=== PATIENT | male | born 2000 | race Two or more races ===

== ENCOUNTER 2024-01-31 07:32 | Emergency (ER) | payer OTHER, SELFPAY ==
[2024-01-31 07:40] VITALS: BP 143/63; PULSE 90; RESP 16; TEMP 36.4; O2SAT 98; BMI 35.4
[2024-01-31] MEDS: Ondansetron ODT 4 MG TAB.RAPDIS TRANSLINGU (07:43)
[2024-01-31 08:02] LABS: MANUAL DIFF FLAG NO
[2024-01-31 08:04] LABS: Basophils Percent Auto 0.3 % (0-2); Eosinophils Percent Auto 0.7 % (0-4); Hematocrit 46.4 % (42.0-52.0); Hemoglobin 16.3 g/dl (14.0-18.0); Imm Gran Abs Auto 0.04 X10*3/uL (0.00-0.03); Imm Gran Pct Auto 0.7 % (0.0-0.4); Lymphocytes Absolute Auto 1.7 X10*3/uL (1.2-4.9); Lymphocytes Percent Auto 28.6 % (20-40); Mean Corpuscular HGB Conc 35.1 g/dl (31.0-36.0); Mean Corpuscular Hemoglobin 30.5 pg (27.0-33.0); Mean Corpuscular Volume 86.7 fL (80.0-98.0); Mean Platelet Volume 9.5 fL (9.4-12.4); Monocytes Percent Auto 16.9 % (2-11); Neutrophils Absolute Auto 3.1 x10*3/uL (2.0-8.3); Neutrophils Percent Auto 52.8 % (45-73); Platelet Count 304 X10*3/uL (160-400); Red Blood Count 5.35 X10*6/uL (4.60-5.80); White Blood Count 5.8 X10*3/uL (4.8-10.8)
[2024-01-31 08:17] LABS: Anion Gap 16 (12-20); Blood Urea Nitrogen 15 mg/dL (9-16); Calcium 9.5 mg/dL (8.4-10.2); Carbon Dioxide 23 mmol/L (22-29); Chloride 103 mmol/L (96-108); Creatinine Clr Calc Pharmacy 131.6; Estimated Glomerular Filt Rate > 60; Glucose Random 100 mg/dL (60-115); Potassium 3.7 mmol/L (3.3-5.1); Sodium 138 mmol/L (135-145)
[2024-01-31 08:46] LABS: Influenza A PCR NEGATIVE (Negative); Influenza B PCR NEGATIVE (Negative); Resp Syncy Virus RNA Qual PCR NEGATIVE (Negative); SARS COV2 PCR INHOUSE NEGATIVE (Negative)
== END 2024-01-31 11:36 | disposition left against medical advice (07) ==
PROVIDERS: Emergency Provider Emergency Medicine
DX: R11.2 Nausea with vomiting, unspecified (principal); R19.7 Diarrhea, unspecified; Z03.818 Encounter for observation for suspected exposure to other biological agents ruled out
CPT/HCPCS: 0241U; 80048; 85025; 99281; 99283

== ENCOUNTER 2024-01-31 18:28 | Emergency (ER) | payer OTHER, SELFPAY | END 2024-01-31 19:52 | disposition left against medical advice (07) | PROVIDERS: Emergency Provider Emergency Medicine | DX: Z53.21 Procedure and treatment not carried out due to patient leaving prior to being seen by health care provider (principal); R10.9 Unspecified abdominal pain; R11.10 Vomiting, unspecified ==

== ENCOUNTER 2024-08-08 08:59 | Emergency (ER) | payer MEDICAID, SELFPAY ==
--- NOTE | ~2024-08-08 | XR_ITS ---
EXAMINATION: XR CHEST CLINICAL INFORMATION: chest pain COMPARISON: None available. TECHNIQUE: 2 views of the chest were obtained. FINDINGS: Overlying EKG wires. The lungs are well-expanded. No focal consolidation. No pleural effusions or pneumothorax. The cardiac mediastinal silhouette is within normal limits. No acute osseous abnormality. XR/XR chest 2V IMPRESSION: No acute pulmonary disease. Electronically signed by: Ori Silva MD 08/08/2024 09:35 AM [facility]
--- NOTE | 2024-08-08 09:01 | ECG_ITS ---
Test Reason : CHEST TIGHTNESS Blood Pressure : / mmHG Vent. Rate : 068 BPM Atrial Rate : 068 BPM P-R Int : 172 ms QRS Dur : 114 ms QT Int : 372 ms P-R-T Axes : 024 059 042 degrees QTc Int : 395 ms Normal sinus rhythm Normal ECG No previous ECGs available Referred By: Generic ED Physician Electronically Signed By:MARY HURTADO MD
[2024-08-08 09:03] VITALS: BP 145/67; PULSE 68; RESP 18; TEMP 37.2; O2SAT 100; BMI 32.1
--- NOTE | 2024-08-08 09:26 | ED.CHESTPAIN ---
HPI - Chest Pain General Chief Complaint: Chest Pain Stated Complaint: Chest tightness 4 days Time Seen by Provider: 08/08/24 09:13 Source: patient and family Mode of arrival: ambulatory Limitations: no limitations History of Present Illness ED Provider: Laurita Siegel PA-C HPI narrative: 24 y/o male presents to the ER for evaluation of 3-4 days of intermittent chest pain and pressure. He reports he gets random episodes of sharp, squeezing left-sided chest pain that does not radiate. He has had 2 episodes a day for the last 3 or 4 days. He states 1 episode yesterday lasted almost 2 hours and then slowly resolved. He denies any associated shortness of breath, nausea, diaphoresis. No cough, URI symptoms, fever, chills, N/V/D or abdominal pain. Mother endorses he has had a significant amount of unintentional weight loss over the last 3 months. He was 240-250lbs and is now 207lbs. He has been eating normally. No night sweats, body aches, rashes, headaches or changes in bowel movements. MD complaint: chest pain Onset (ago): day(s) (4) Timing of current episode: episodic Prior episodes: No Onset: during rest Pain location: left chest Pain radiation: none Severity: severe Quality: aching and sharp Relieving factors: nothing Exacerbating factors: nothing Associated symptoms: other (weight loss) Treatment prior to arrival: none Risk Factors Coronary artery disease risk factors: smoking history Thoracic aortic dissection risk factors: none Related Data Allergies Allergy/AdvReac Type Severity Reaction Status Date / Time No Known Allergies Allergy Verified 08/08/24 09:09 Review of Systems Review of Systems: Yes all other systems are reviewed and are negative [facility] Social History Social History Use of substances other than those prescribed or required for medical reasons: Yes Substance Use Type: Marijuana Substance Use Frequency: Chronic Longstanding Advance Directives: No Advance Directives Information Provided: Yes Do you have a plan to hurt others: No Plan Physical Exam Vital Signs: Vital Signs: Last Vital Signs Temp 98.5 F 08/08/24 11:17 Pulse 79 08/08/24 11:17 Resp 16 08/08/24 11:17 BP 130/71 08/08/24 11:17 Pulse Ox 99 08/08/24 11:17 O2 Del Method Room Air 08/08/24 11:17 BMI result Body Mass Index 32.1 Appearance: Alert. Oriented X3. No acute distress. Head: normocephalic, atraumatic. Eyes: Pupils equal, round and reactive to light. ENT: Pharynx normal. No tonsillar swelling or exudate. Neck: Normal inspection. Neck supple. CVS: Normal heart rate and rhythm. Pulses normal. Nontender chest wall Respiratory: No respiratory distress. Breath sounds normal. Abdomen: Soft and nontender. +BS x4 Skin: Skin warm and dry. Normal skin color. Normal skin turgor. No rashes. Extremities: No lower extremity edema. No joint swelling. Negative Kurtis's sign Neuro/psych: Oriented X 3. No motor deficit. No sensory deficit. CN II-XII intact. Normal speech and cognition. Medical Decision Making Medical Decision Making [facility] Narrative: 24 yo male presenting with intermittent left sided chest pains x4 days along with unintentional weight loss over 3 months. he smokes marijuana but no tobacco. no illicit drug use. no health issues that he knows of. VSS on arrival. physical exam is unremarkable. EKG is nonischemic. doubt cardiac etiology labs are unreamrkable. troponin is negative. patient remains pain free. at this time patient is stable for d/c home with outpatient follow up. Differential Diagnosis Differential Diagnoses: The differential diagnosis associated with the presentation includes costochondritis, ACS, PE, anxiety, underlying malignancy Lab Data [facility] Lab Attestation statement: I reviewed the patient's lab results. mild neutropenia 08/08/24 09:44 08/08/24 09:44 Labs: Lab Results 08/08/24 08/08/24 08/08/24 Range/Units 09:19 09:44 11:19 WBC 4.2 L (4.8-10.8) X10*3/uL RBC 4.86 (4.60-5.80) X10*6/uL Hgb 14.8 (14.0-18.0) g/dl Hct 43.5 (42.0-52.0) % MCV 89.5 (80.0-98.0) fL MCH 30.5 (27.0-33.0) pg MCHC 34.0 (31.0-36.0) g/dl RDW 13.0 (11.0-16.0) % Plt Count 286 (160-400) X10*3/uL MPV 9.6 (9.4-12.4) fL Immature Gran % (Auto) 0.2 (0.0-0.4) % Neut % (Auto) 47.0 (45-73) % Lymph % (Auto) 38.3 (20-40) % [place] % (Auto) 9.6 (2-11) % Eos % (Auto) 3.9 (0-4) % Baso % (Auto) 1.0 (0-2) % Lymph # (Auto) 1.6 (1.2-4.9) X10*3/uL [place] # (Auto) 0.4 (0.1-1.2) X10*3/uL Eos # (Auto) 0.2 (0.0-0.4) X10*3/uL Baso # (Auto) 0.0 (0.0-0.2) X10*3/uL Abs Immat Gran (auto) 0.01 (0.00-0.03) X10*3/uL Absolute Neuts (auto) 2.0 (2.0-8.3) x10*3/uL Absolute Nucleated RBC 0.000 (0.0-0.012) X10*3/uL Nucleated RBC % (auto) 0.0 (0.0-0.2) /100WBC Sodium 138 (135-145) mmol/L Potassium 4.5 D (3.3-5.1) mmol/L Chloride 104 (96-108) mmol/L Carbon Dioxide 29 (22-29) mmol/L Anion Gap 10 L (12-20) BUN 9 (9-16) mg/dL Creatinine 0.83 (0.5-1.4) mg/dL Estim Creat Clear Calc 161.5 Estimated GFR > 60 Random Glucose 93 (60-115) mg/dL Calcium 9.6 (8.4-10.2) mg/dL Magnesium 2.0 (1.6-2.6) mg/dL Total Bilirubin 0.4 (0.0-1.0) mg/dL Direct Bilirubin 0.2 (0.0-0.5) mg/dL AST 24 (5-37) U/L ALT 12 (0-40) U/L Alkaline Phosphatase 63 (39-117) U/L Troponin I High Sens < 2.7 (<3.5-35.0) ng/L Total Protein 7.0 (6.5-8.0) g/dL Albumin 4.1 (3.5-5.0) g/dL Urine Color Yellow Urine Appearance Clear Urine pH 8.5 (5.0-9.0) Ur Specific [place] 1.010 (1.005-1.025) Urine Protein Negative (Neg-Trace) mg/dL Urine Glucose (UA) Negative (Negative) mg/dL Urine Ketones Negative (Negative) mg/dL Urine Blood Negative (Negative) Urine Nitrite Negative (Negative) Ur Leukocyte Esterase Negative (Negative) Influenza Type A (PCR) NEGATIVE (Negative) Influenza Type B (PCR) NEGATIVE (Negative) RSV RNA Qual (PCR) NEGATIVE (Negative) SARS-CoV-2 RNA (RT-PCR) NEGATIVE (Negative) Independent Interpretation I performed an independent interpretation of an: EKG and Plain X-Ray Interpretation: ekg w/ normal sinus rhythm, HR 68 bpm, normal CO interval, normal QTc CXR clear without focal infiltrate or mass Independent Historian Clinical information obtained from an independent historian. History obtained from or confirmed by: Parent External Record Review External record reviewed: Outpatient record and Prior outpatient labs Prescription Management I considered prescription management with: Pain Medication Social Determinants Patient?s care significantly limited by Social Determinants of Health including: Other Social Determinant of Health (no PCP) Critical Care Time Critical Care Time Critical Care Time: No Discharge Plan Discharge Clinical Impression: Atypical chest pain Patient Disposition: Home, Self-Care Instructions: Noncardiac Chest Pain (ED) Additional Instructions: your lab workup today was unremarkable your EKG and chest x-ray were normal recommend outpatient follow up with a primary care provider If you develop new or worsening symptoms call 911 or come back to the ER for further evaluation. Referrals: [facility] Family Medicine [Provider Group] [facility] Primary CareTerence [Provider Group] Stand Alone Forms: Work/School Release Print Language: [place]
[2024-08-08 09:50] LABS: MANUAL DIFF FLAG NO
[2024-08-08 09:54] LABS: Eosinophils Absolute Auto 0.2 X10*3/uL (0.0-0.4); Eosinophils Percent Auto 3.9 % (0-4); Hematocrit 43.5 % (42.0-52.0); Hemoglobin 14.8 g/dl (14.0-18.0); Imm Gran Abs Auto 0.01 X10*3/uL (0.00-0.03); Imm Gran Pct Auto 0.2 % (0.0-0.4); Lymphocytes Absolute Auto 1.6 X10*3/uL (1.2-4.9); Lymphocytes Percent Auto 38.3 % (20-40); Mean Corpuscular Hemoglobin 30.5 pg (27.0-33.0); Mean Corpuscular Volume 89.5 fL (80.0-98.0); Mean Platelet Volume 9.6 fL (9.4-12.4); Monocytes Absolute Auto 0.4 X10*3/uL (0.1-1.2); Monocytes Percent Auto 9.6 % (2-11); Platelet Count 286 X10*3/uL (160-400); Red Blood Count 4.86 X10*6/uL (4.60-5.80); White Blood Count 4.2 X10*3/uL (4.8-10.8)
[2024-08-08 10:03] LABS: Influenza A PCR NEGATIVE (Negative); Influenza B PCR NEGATIVE (Negative); Resp Syncy Virus RNA Qual PCR NEGATIVE (Negative); SARS COV2 PCR INHOUSE NEGATIVE (Negative)
[2024-08-08 10:05] LABS: Alanine Aminotransferase 12 U/L (0-40); Albumin Level 4.1 g/dL (3.5-5.0); Alkaline Phosphatase 63 U/L (39-117); Anion Gap 10 (12-20); Aspartate Amino Transferase 24 U/L (5-37); Bilirubin Direct 0.2 mg/dL (0.0-0.5); Bilirubin Total 0.4 mg/dL (0.0-1.0); Blood Urea Nitrogen 9 mg/dL (9-16); Calcium 9.6 mg/dL (8.4-10.2); Carbon Dioxide 29 mmol/L (22-29); Chloride 104 mmol/L (96-108); Creatinine Clr Calc Pharmacy 161.5; Estimated Glomerular Filt Rate > 60; Glucose Random 93 mg/dL (60-115); Potassium 4.5 mmol/L (3.3-5.1); Sodium 138 mmol/L (135-145)
[2024-08-08 10:13] LABS: Troponin-I High Sensitivity < 2.7 ng/L (<3.5-35.0)
[2024-08-08 11:17] VITALS: BP 130/71; PULSE 79; RESP 16; TEMP 36.9; O2SAT 99
[2024-08-08 11:25] LABS: Appearance Urine Clear; Color Urine Yellow; Glucose Urine UA Negative (Negative); Leukocyte Esterase Urine Negative (Negative); Nitrite Urine Negative (Negative); PH 8.5 (5.0-9.0); Urine Blood Negative (Negative); Urine Ketones Negative (Negative); Urine Protein Negative (Neg-Trace)
[2024-08-08 12:15] VITALS: BP 130/71; PULSE 79; RESP 16; TEMP 36.9; O2SAT 99
== END 2024-08-08 12:15 | disposition home or self-care (01) ==
PROVIDERS: Physician Assistant; Emergency Provider Emergency Medicine
DX: R07.89 Other chest pain (principal); Z79.899 Other long term (current) drug therapy; Z03.818 Encounter for observation for suspected exposure to other biological agents ruled out
CPT/HCPCS: 0241U; 36415; 71046; 80048; 80076; 81003; 83735; 84484; 85025; 93005; 99283; 99285

== ENCOUNTER → 2024-08-08 09:01 | Outpatient (BNV) | payer SELFPAY | PROVIDERS: Emergency Provider Emergency Medicine; Visit Provider Internal Medicine Cardiovascular Disease | DX: R07.9 Chest pain, unspecified (principal) | CPT/HCPCS: 93010 ==

== ENCOUNTER 2025-06-05 20:21 | Emergency (ER) | payer OTHER, SELFPAY ==
--- NOTE | ~2025-06-05 | XR_ITS ---
CLINICAL HISTORY: injur playing basketball, pain and swelling 3 view right ankle Comparison: None provided Findings: No dislocation. No significant arthritic change or erosions. There may be a poorly defined small joint effusion. No radiopaque foreign body. Mild ankle swelling, especially laterally. IMPRESSION: 1. Right ankle swelling with questionable joint effusion. 2. At the posterior talus there is a 1.6 x 0.9 cm ossicle. Likely large os trigonum. A posterior talus fracture is less likely. If clinically equivocal, recommend CT. This document has been electronically signed by: Edmond Reeves MD on 06/05/2025 21:30:04
[2025-06-05 20:49] VITALS: BP 117/57; PULSE 71; RESP 16; TEMP 37; O2SAT 97; BMI 28.5
--- NOTE | 2025-06-05 21:51 | ED_ITS ---
HPI - Extremity Injury (Lower) General Chief Complaint: Extremity Injury, Lower Stated Complaint: right ankle inj Time Seen by Provider: 06/05/25 20:58 Source: patient Mode of arrival: ambulatory Limitations: no limitations History of Present Illness ED Provider: Jayne Vann APRN HPI Narrative: 25 year old male with no known medical history presents the ER with right heel pain. Patient reports he jumped up playing basketball and landed very heavily on his right heel. He immediately developed pain and pressure in his heel. Reports pain with weight-bearing. He denies any associated weakness, numbness or tingling of extremity. Related Data Allergies Allergy/AdvReac Type Severity Reaction Status Date / Time No Known Allergies Allergy Verified 06/05/25 20:50 Review of Systems Review of Systems: Yes all other systems are reviewed and are negative Constitutional: Constitutional: Reports no additional constitutional complaints, Denies body ache(s), Denies chills, Denies fever(s), Denies headache(s) and Denies weakness Eyes: Eyes: Reports no additional eye complaints and Denies change in vision ENT: Reports system reviewed and no additional complaints, except as documented, Denies dizziness, Denies headache(s), Denies nasal congestion, Denies nasal discharge and Denies neck pain Cardiovascular: Cardiovascular: Reports no additional cardiovascular complaints, Denies chest pain, Denies leg edema and Denies dyspnea Respiratory: Respiratory: Reports no additional respiratory complaints, Denies cough and Denies dyspnea Gastrointestinal: Gastrointestinal: Reports no additional gastrointestinal complaints, Denies abdominal pain, Denies diarrhea, Denies nausea and Denies vomiting Genitourinary: Genitourinary: Denies urinary incontinence Musculoskeletal: Musculoskeletal: Reports no additional musculoskeletal complaints, Denies back pain, Reports arthralgias, Denies joint swelling, Denies limited range of motion, Denies neck pain, Denies numbness and Denies tingling Integumentary/Breasts: Skin/Breast: Reports system reviewed and no additional complaints, except as docu and Denies rash Neurologic: Reports system reviewed and no additional complaints, except as documented, Denies Abnormal speech present, Denies dizziness, Denies headache(s), Denies numbness, Denies tingling and Denies weakness PMF Past Medical History Attestation statement: The following information was validated with the patient. Source: old records reviewed and nursing notes reviewed Social History Social History Substance Use Type: Marijuana Advance Directives: No Advance Directives Information Provided: No Physical Exam Vital Signs: Vital Signs: Last Vital Signs Temp 98.6 F 06/05/25 20:49 Pulse 71 06/05/25 20:49 Resp 16 06/05/25 20:49 BP 117/57 L 06/05/25 20:49 Pulse Ox 97 06/05/25 20:49 O2 Del Method Room Air 06/05/25 20:49 BMI result Body Mass Index 28.5 Const: General: cooperative, healthy appearing, comfortable and no acute distress Orientation/consciousness: patient oriented x3 Limitations: no limitations HEENT: Head: Yes normal to inspection Ears: hearing grossly normal bilaterally General nose exam: Normal external nose present Face and sinus: Yes normal facial exam Mouth: Normal oral and palatal mucosa present Throat: Yes posterior oropharynx normal Eyes: General: appearance normal, both eyes and all related structures Pupils: Equal, round and reactive pupils present Neck: Neck: Yes normal visual inspection Chest: Chest palpation & inspection: normal inspection of the chest Resp: Effort & Inspection: normal respiratory effort Auscultation: clear to auscultation bilaterally Cardio: Rate: regular rate Rhythm: regular rhythm Peripheral pulses: Peripheral pulses 2+ throughout GI: Inspection: Yes normal to inspection Palpation (GI): Soft to palpation and nontender Auscultation: normal bowel sounds Back/Spine/Pelvis: Thoracic/Lumbar Spine: thoracic and lumbar spine normal to inspection Skin: General skin exam: no rashes or lesions noted Neuro: General: patient oriented x3, no focal motor deficits and normal sensation to monofilament Cranial nerves: Yes Equal, round and reactive pupils present Cognition (Neuro): normal cognition Speech: No Abnormal speech present Gait exam (Neuro): Normal gait present Motor exam (neuro): 5/5 motor strength present throughout Extrem: Other: Patient has pain on palpation to the plantar aspect of the right heel. There is no pain on palpation to the medial, lateral or posterior ankle. Negative Machado sign. No pain on palpation to the foot. There is full active and passive range of motion. Normal sensation. 2+ DP and PT pulses General: Yes normal to inspection Course Course Course Narrative: x-ray shows IMPRESSION: 1. Right ankle swelling with questionable joint effusion. 2. At the posterior talus there is a 1.6 x 0.9 cm ossicle. Likely large os trigonum. A posterior talus fracture is less likely. If clinically equivocal, recommend CT. there is pain on palpation to the heel. I doubt fracture however based on clinical exam and x-ray report I will place the patient in a splint, crutches and have him follow up outpatient with Orthopedics. Reviewed worrisome signs and symptoms of when to return to the emergency room. Comfortable plan for discharge home. Medical Decision Making Medical Decision Making MDM Narrative: 25 year old male with no known medical history presents the ER with right heel pain. Patient reports he jumped up playing basketball and landed very heavily on his right heel. He immediately developed pain and pressure in his heel. Reports pain with weight-bearing. He denies any associated weakness, numbness or tingling of extremity. Patient has pain on palpation to the plantar aspect of the right heel. There is no pain on palpation to the medial, lateral or posterior ankle. Negative Machado sign. No pain on palpation to the foot. There is full active and passive range of motion. Normal sensation. 2+ DP and PT pulses will check x-ray Differential Diagnosis Differential Diagnoses: The differential diagnosis associated with the presentation includes fracture, contusion, sprain, strain low suspicion for vascular injury, complex fracture, dislocation or Achilles tendon rupture based on clinical exam Admission/Observation Consideration of admission/observation: Escalation of care including admission/observation considered Independent Interpretation I performed an independent interpretation of an: Plain X-Ray Interpretation: I independently viewed the x-ray and agree with the radiology report Radiology Impression Discussion of test interpretation with radiology: I have reviewed the radiologist's reading. Radiologist Impression: [address] [address] XRay Report Signed Patient: Serafin Webb MR#: [id number] : 2000 Acct:[id number] Age/Sex: 25 / M ADM Date: 06/05/25 Loc: .ED Attending Dr: Ordering Physician: Generic ED Physician Date of Service: 06/05/25 Procedure(s): XR ankle RT min 3V Accession Number(s): [id number] cc: Generic ED Physician; Physician,None ~ Reason for Exam: injur playing basketball, pain and swelling CLINICAL HISTORY: injur playing basketball, pain and swelling 3 view right ankle Comparison: None provided Findings: No dislocation. No significant arthritic change or erosions. There may be a poorly defined small joint effusion. No radiopaque foreign body. Mild ankle swelling, especially laterally. IMPRESSION: 1. Right ankle swelling with questionable joint effusion. 2. At the posterior talus there is a 1.6 x 0.9 cm ossicle. Likely large os trigonum. A posterior talus fracture is less likely. If clinically equivocal, recommend CT. This document has been electronically signed by: Edmond Reeves MD on 06/05/2025 21:30:04 Prescription Management I considered prescription management with: Pain Medication Procedures Orthopedic Splinting/Casting Injury #1: Side: right Lower Extremity Injury Location: ankle Lower Extremity Immobilizer: AirCast Other Orthopedic Equipment: crutches Discharge Plan Discharge Clinical Impression: Heel pain Patient Disposition: Home, Self-Care Instructions: Arthralgia (ED) Additional Instructions: your x-ray shows an abnormality over the heel which is where you are having pain. The radiologist can not rule out a fracture. you may need additional outpatient imaging. We will have you follow up with orthopedics will evaluate you and determine if this is needed. In the meantime rest the extremity, ice the extremity, Elevate it, no weight-bearing. Motrin or Tylenol for pain as needed Referrals: [facility] [place] [facility] [Provider Group] Print Language: Greenlandic
[2025-06-05 22:12] VITALS: BP 115/68; PULSE 62; RESP 16; TEMP 36.6; O2SAT 98
[2025-06-05 22:13] VITALS: BP 115/68; PULSE 62; RESP 16; TEMP 36.6; O2SAT 98
== END 2025-06-05 22:13 | disposition home or self-care (01) ==
LOC: HO.ED 22:05
PROVIDERS: Emergency Provider Emergency Medicine
DX: S99.921A Unspecified injury of right foot, initial encounter (principal); X50.1XXA Overexertion from prolonged static or awkward postures, initial encounter; X50.9XXA Other and unspecified overexertion or strenuous movements or postures, initial encounter; Y93.67 Activity, basketball; Y92.310 Basketball court as the place of occurrence of the external cause; Y99.8 Other external cause status
CPT/HCPCS: 73610; 99283; 99284

== ENCOUNTER → 2025-06-05 20:50 | Outpatient (BNV) | payer MEDICAID, SELFPAY | PROVIDERS: Emergency Provider Emergency Medicine; Visit Provider Radiology Diagnostic Radiology | DX: M25.471 Effusion, right ankle (principal) | CPT/HCPCS: 73610 ==

== ENCOUNTER 2025-06-09 08:24 | Outpatient (AMB) | payer OTHER, SELFPAY ==
--- OUTSIDE RECORDS SUMMARY | 2024-04-26 10:00 | XMS_ITS | Continuity of Care Document ---
Author Organization [facility] Address [address] [place] [address] Phone Care Team Providers Care Certified Medical Coding Specialist Name Role Phone Susan Nelson Unavailable Unavailable Allergies, Adverse Reactions, Alerts Substance Reaction Status Criticality No Known Allergies Active No Inform ation Medications Medication Instructions Dosage Effective Dates (start - stop) Status Comments loperamide 2 mg capsule take 2 capsule b y oral route after 1st loose stool, followed by 1 capsule after each subsequent loose stool not to exceed 16 mg/day 4 MG - Active ondansetron [address] 1 tablet by translingual route 2 times every day on top of the tongue where they will dissolve, then swallow 4 MG - Active Lac-Hydrin Five 5 % lotion Apply twice daily to affected area; rub in well - Active Procedures Procedure Date OFFICE/OUTPATIENT VISIT, EST BMI Documented Diastolic BP Less Than 80mm Hg 24 Systolic BP Less Than 130mm Hg 24 Rapid Flu Test, INFLUENZA ASSAY W/OPTIC, 1 Of 2 SARS-COV-2 COVID19 W/OPTIC, BinaxNow Apr OFFICE/OUTPATIENT VISIT, EST Diastolic BP Less Than 80mm Hg 24 Systolic BP Less Than 130mm Hg 24 ADM SARSCOV2 30MCG/0.3ML 2ND, Pfizer Jun REFRACTION EYE EXAM & TREATMENT ADM SARSCOV2 30MCG/0.3ML 1ST, Pfizer Jun IZ Admin, Each Additional IZ Admin, First Vaccine IZ Admin, Each Additional HEMOGLOBIN PURE TONE HEARING TEST, AIR VISUAL ACUITY SCREEN IZ Admin, First Vaccine PREV VISIT, EST, AGE 12-17 REFRACTION EYE EXAM & TREATMENT REFRACTION EYE EXAM & TREATMENT REFRACTION EYE EXAM & TREATMENT FITTING OF SPECTACLES OFFICE/OUTPATIENT VISIT, EST,VISION OFFICE/OUTPATIENT VISIT, EST,VISION EYE EXAM ESTABLISHED PAT REFRACTION FITTING OF SPECTACLES PREV VISIT, EST, AGE 5-11 FLU VACCINE, SPLIT VIRUS, 3 YRS & OLDER OFFICE/OUTPATIENT VISIT, NEW VISUAL ACUITY SCREEN PURE TONE HEARING TEST, AIR HEMOGLOBIN U/A DIP OFFICE/OUTPATIENT VISIT, EST,VISION OFFICE/OUTPATIENT VISIT, NEW,VISION Advance Directives Directive Yes / No Effective Date File Name No Information Encounters Encounter Description Practice Location Reason(s) For Visit Diagnoses Date Provider Providers Copied on Encounter OFFICE/OUTPA TIENT VISIT, [facility] Malinias Barry soler, [address], [place], [place], [id number] , [place] tel:[phone] [facility] Coreydannie Savage Diarrhea and stomach pain x5 days (chief complaint) Acute gastroenteriti sBody mass index [BMI] 33.0-33.9, adult 4 Emily Davis. [address], [place], [place], [id number], [place]. tel:[phone] OFFICE/OUTPA TIENT VISIT, EST [facility] karlene, [address], [place], [place], [id number] , [place] tel:[phone] [facility] Corey Savage Fever,Vomitin g,Diarrhea, Body Aches, PORTER's x 2 days (chief complaint) Acute gastroenteriti s 4 No Information [facility] karlene, [address], [place], [place], [id number] , [place] tel:[phone] [facility] [address] Immunization only (chief complaint) No Information 1 Anees Nasr. [address], [id number], [place], [address], [place]. tel:[phone] [facility] k[facility]ene, [address], [place], [place], [id number] , [place] tel:[phone] [facility] [place] blurry vision (chief complaint) Myopia, bilateral 1 No Information [facility]ene, [address], [place], [place], [id number] , [place] tel:[phone] [facility] [address] Immunization only (chief complaint) No Information 1 Anees Nasr. [address], [id number], [place], [address], [place]. tel:[phone] [facility]ene, [address], [place], [place], [id number] , [place] tel:[phone] [facility] [place] Immunization only (chief complaint) No Information 0 Pratik Nolasco. [address] [place] [address], [id number], [place], [place], [id number], [place]. tel:[phone] PREV VISIT, EST, AGE 12-17 [facility]ene, [address], [place], [place], [id number] , [place] [phone] [facility] [place] Well Child 11-21 Years (chief complaint) Encntr for routine child health exam w/o abnormal findingsBMI pediatric, 85% to less than 95th percentile for ageMyopia of both eyesKeratosis pilaris 0 Pratik Nolasco. [address] [place] [address], [id number] , [place], [place], [id number], [place]. tel:[phone] [facility], [address], [place], [id number] , [place] tel:[phone] [facility] [place] No Information 0 Pratik Nolasco. [address] [place] [address], [id number] , [place], [id number], [place]. tel:[phone] [facility], [address], [place], [place], [id number] , [place] tel:[phone] [facility] [place] blurry vision (chief complaint) Myopia of both eyes 9 No Information [facility], [address], [place], [place], [id number] , [place] tel:[phone] [facility] [place] blurry vision (chief complaint) Myopia, bilateral 7 No Information [facility], [address], [place], [id number] , [place] tel:[phone] [facility] [place] blurry vision (chief complaint) Myopia 5 No Information [facility], [address], [place], [id number] , [place] tel:[phone] [facility] [place] redness and itching (chief complaint) Conjunctivitis , unspecified 4 No Information [facility], [address], [place], [id number] , [place] tel:[phone] [facility] [place] blurry vision (chief complaint)red ness and itching (chief complaint) Conjunctivitis , unspecified 4 No Information [facility], [address], [place], [place], [id number] , [place] tel:[phone] [facility] [place] failed vision screen at school (chief complaint) Myopia 3 Manish Bradshaw. [address], [id number] [place], [place], [id number], [place]. tel:[phone] PREV VISIT, EST, AGE 5-11 [facility], [address], [place], [place], [id number] , [place] tel:[phone] [facility] [place] No Information 0 No Information OFFICE/OUTPA TIENT VISIT, NEW [facility] Barry soler, [address], [place], [place], [id number] , [place] tel:[phone] [facility] [place] No Information 0 Yesy Garcia. [address] [place] [address], [place], [place], [id number]. tel:[phone] [facility] Barry soler, [address], [place], [place], [id number] , [place] tel:[phone] [facility] [place] No Information 9 [facility] [address], [address], [place], [address], . tel:[phone] [facility] Barry soler, [address], [place], [place], [id number] , tel:[phone] [facility] [place] No Information 7 [facility]. [address], [address], [place], [address], [place]. tel:[phone] Family History Family Member Type Diagnosis Age At Onset Problem (finding) Family history of Diabe maci mellitus Problem (finding) Family history of Hyper tension Immunizations Vaccine Date Status Comments SARS-COV-2 (COVID-19) vaccin e, mRNA, spike protein, LNP, preservative free, 30 mcg/0.3mL dose administered Note: [id number] ; Sourc e: Public Agency SARS-COV-2 (COVID-19) vaccin e, mRNA, spike protein, LNP, preservative free, 30 mcg/0.3mL dose administered Note: [id number] ; Sour e: Public Agency Meningococcal B administered Source: New Immunization Record Meningococcal MCV4O administered Source: New Immunization Record HPV9 administered Source: New Imm unization Record Flu Quad 3yr and older administered Sour e: New Immunization Record Flu NOS administered Source: Other R egistry MCV4, NOS administered Source: Other R egistry Tdap administered Source: Other R egistry Flu NOS administered Source: Other R egistry Flu NOS administered Source: Other R egistry Flu NOS administered Source: Other R egistry Polio-Inject administered Source: Other R egistry MMRV administered Source: Other R egistry DTaP administered Source: Other R egistry HepA-Ped 2 Dose administered Source: Othe r Registry HepA-Ped 2 Dose administered Source: Othe r Registry DTaP administered Source: Other R egistry PCV7 administered Source: Other R egistry Hib, NOS administered Source: Other R egistry Varicella administered Source: Other R egistry MMR administered Source: Other R egistry PCV7 administered Source: Other R egistry DTaP administered Source: Other R egistry PCV7 administered Source: Other R egistry Polio-Inject administered Source: Other R egistry Hib, NOS administered Source: Other R egistry HepB-Peds administered Source: Other R egistry Flu NOS administered Source: Other R egistry DTaP administered Source: Other R egistry Polio-Inject administered Source: Other R egistry Hib, NOS administered Source: Other R egistry DTaP administered Source: Other R egistry PCV7 administered Source: Other R egistry Polio-Inject administered Source: Other R egistry Hib, NOS administered Source: Other R egistry HepB-Peds administered Source: Other R egistry DTaP administered Source: Other R egistry HepB-Peds administered Source: Other R egistry Payers Payer name Insurance type Covered libertarian ID Authoriza tion(s) [facility] Adult Expansion CAP [id number] [facility] Code 18 [id number] [facility] [id number] [facility] [id number] Social History Type Description Quantity Date Captured Comments Alcohol Use Details Unknown Caffeine Use Details coffee and tea occ per day Tobacco Use Status Never smoked tobacco 2023 Smoking Status Never smoker Sex Male Vital Signs Date / Time: Height Weight BMI Pulse Rate Blood Pressure Temperature Respiratory Rate Body Surface Area Head Circumference BMI percentile Pulse Ox Inhaled Ox 1:10 PM 73.75 in 258.00 lbs 33.3 5 kg/m eter (2) 89 /min 110/75 mm[Hg] 98.7 F 18 /min 2.47 meter(2) 97 Chief Complaint And Reason For Visit From encounter dated '04/26/2024 14:00'. Diarrhea and stomach pain x5 days (chief complaint). Description: 24 y/o male with no PMHxpresents to the clinic today with the c/o abdominal discomfort, nausea and diarrhea started x5 days ago. Patient states he took Imodium x1 tab with no relief. See ROS for pertinent negatives. Plan Of Treatment Date Type Action Status Goal Lifestyle education regardin g diet completed History Of Present Illness Encounter Date Complaint History Of Prese nt Illness Diarrhea and stomach pain x5 day s 24 y/o male with no PMHx presents to the clinic today with the c/o abdominal discomfort, nausea and diarrhea started x5 days ago. Patient states he took Imodium x1 tab with no relief. See ROS for pertinent negatives. Fever,Vomiting,Diarr hea, Body Aches, PORTER's x 2 days In a 24-year-old male patient presenting with a two-day history of fever, vomiting, diarrhea, body aches, and headaches. The patient describes the fever as intermittent and associated with chills. The vomiting has been non-bloody and non-bilious, occurring multiple times a day. The diarrhea is watery and frequent, with no reported blood or mucus in the stool. The body aches are generalized, and the headaches are described as dull and constant. The patient denies any recent travel, sick contacts, or known food poisoning. Despite these symptoms, the patient appears stable and well in appearance. Immunization only blurry vision The 21 year old male presents for evaluation of blurry vision in the right eye and left eye. Pain 0/10. Pt reports blur at distance and near. Current SRx about 2 years old. Immunization only Immunization only Well Child 11-21 Years Shaheen oates is a 19 year 9 month old male who presents for a Well Child Check. No pertinent PMH reported. Patient wears prescription lenses, did not bring them today.The parent/guardian/patient has no concerns or questions. He does not have a dental home. Teen lives with: Parents and 4 siblings.He eats meals with family, has family member/adult to turn to for help and is able to make independent decisions.He does drinks sweetened liquids. blurry vision The 19 year 3 mo nth old male presents for evaluation of blurry vision in the right eye and left eye. Pain 0/10. Pt reports blur at distance. Current SRx about 2 years old, [place]. blurry vision The 17 year 1 mo nth old male presents for evaluation of blurry vision It affects distance vision sc. Sees well with current glasses. pain 0/10. JONO 02/2015 blurry vision The 15 year 1 mo nth old male presents for evaluation of blurry vision in the right eye and left eye. It affects distance vision without glasses. Wears glasses for school and for T.V. occasionally--did not wear glasses in today. Last comprehensive 01/2013 redness and itching The 14 year 5 month old male presents for evaluation of redness and itching in the right eye and left eye. Pt is here for 2 wk f/u of conjunctivities. Maxitrol drops using tid per mother. Still non-compliant with srx use. Did not bring glasses today. blurry vision The patient is p resent for evaluation of blurry vision in the right eye and left eye. The onset was gradual. It affects OU. The condition is significant. The pain scale is 0/10. Pt broke glasses 1 month ago, myopic. Mother reports having ordered new glasses 1 day ago redness and itching The patient is present for evaluation of redness and itching in the right eye and left eye. It started about 2 day(s) ago. The onset was gradual. The pain scale is 0/10. No eye drops at this time. Mother reports h/o allergies with weather change. Instructions Date Instruction Additional Infor edvin Impression/Plan Related to Myopi a, bilateral Giving encouragement to exercise Related to BMI,pediatric 85% - <95% Lifestyle education regarding di et Related to BMI,pediatric 85% - <95% Impression/Plan Related to Myopi a of both eyes - Return in 1-2 year s with Kalani Tesfaye, OD for Complete Exam Related to Myopia, bilateral - Spectacle Rx final ized for general use. Patient educated on adaptation to glasses. Related to Myopia, bilateral - Return in 1-2 year s with Kalani Tesfaye, PAO for Complete Exam Related to Myopia - Spectacle Rx updat ed. Allow 2-3 weeks for adaption. Related to Myopia - --Mother and pt ed to findings--Mostly resolved, asymptomatic for discomfort--Pt stubbornly non-compliant with Srx use- stressed adverse effects of this habit--Instructed to use maxitrol tid/qid OU until they run out--Call if sudden changes Related to Conjunctivitis, unspecified - Return in 2 weeks with Patricia Muniz OD for follow up exam Related to Conjunctivitis, unspecified - --Pt and mother ed to all findings--Likely bacterial/ viral conjunctivitis, unable to verify at this time--Pt denies recent h/o cold/ flu like symptoms--Start Maxitrol drops qid OD and OS--Lid hygiene explained, use cold compresses/ ice packs for persistent discomfort--Call if sudden changes Related to Conjunctivitis, unspecified Myopia - New glasses 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
--- NOTE | 2025-06-09 08:38 | A.OFFVIS_ITS ---
Vital Signs 06/09/25 08:39 Height 5 ft 9 in Weight 193 lb BMI 28.5 Intake Visit Reasons: ED F/U Rt Heel Pain Intake Note: Serafin is a 25 year old male who presents today as a new patient for right ankle pain. He was seen at the ED where crutches and brace was provided. Patient reports he jumped up while playing basketball and landed on his right heel. Patient has pain to the plantar aspect of the right heel with weight bearing. He has taken ibuprofen for the pain and found mild relief. Allergies No Known Allergies Allergy (Verified 06/05/25 20:50) HPI HPI ED F/U Rt Heel Pain: Details: The patient is a 25-year-old male presenting today for initial evaluation of right ankle injury sustained during a basketball game. The injury occurred when the patient landed on his right heel. He noted immediate pain and swelling. He went to the emergency room within an hour of the incident, where he was provided with an Aircast brace and crutches. The patient reports that the ankle does not hurt while at rest but experiences sharp pain when attempting to bear weight or flex the toe. The patient has a history of previous ankle injuries, including a fracture and a sprain, but denies any current medical problems. Medical History: - Previous right ankle fracture - Previous right ankle sprain - Previous right toe fractures Social History: - Employment: Currently unemployed, had to reschedule a job interview due to injury - Tobacco use: Smokes regularly (<1PPD), advised that smoking may delay bone healing PFSH Social History Substance Use Type: Marijuana Review of Systems Const All systems reviewed & are unremarkable except as noted in HPI and below Physical Exam Vital Signs: BMI result Body Mass Index 28.5 Extrem Other: *Bilateral Lower Extremity Focused Foot/Ankle Exam Vascular: DP/PT 2/4, CFT<3s to digits, TG warm to cool, mild right medial and posterior ankle edema, pedal hair present Derm: No Ecchymosis present to the right ankle. Neuro: Protective sensation grossly intact to bilateral lower extremities. Negative Tinel sign to the intermediate dorsal cutaneous nerve. Msk: Moderate tenderness on palpation along the posterior aspect of the ankle anterior to the Achilles at the level of the talus. Moderate pain on maximum dorsiflexion and plantar flexion of the ankle. (+) Positive pain to the posterior ankle elicited on range of motion of the hallux. Deformities: No evidence of hammertoes, bunions, Charcot changes, or other structural abnormalities. Gait: None Weight-bearing in crutches Office Procedures [facility] Pod[facility]ry Dressing Details of Procedure: Procedure: Posterior splint (below knee) Indication: Right lower extremity posterior talus fracture Description: A posterior splint was applied to the right lower extremity using 4 x 4 level/soft cast padding, 6 in Jose bandage, 4 x 30 orthoglass splint, and secured with 6 in Jose bandage. Tolerance: Patient tolerated procedure well, no immediate complications. * the patient was instructed to remain nonweightbearing in the splint with crutches. 17543 - Short leg splint Procedure code (CPT) selection complete Results Reviewed Results Reviewed: Podiatry X-ray Read: 06/05/2025 X-ray Right ankle 3 views (AP, Mortise, Lateral) reviewed which shows radiolucency of the posterior process of the talus with mild displacement. No fractures of the tibia/talus/calcaneus, no dislocations, osteochondral defects, or other gross abnormalities. Anatomic alignment of the tibiotalar joint. Bone density is within normal limits. I personally reviewed the imaging and my findings are listed above. Assessment & Plan Assessment & Plan (1) Displaced fracture of posterior process of right talus, initial encounter for closed fracture: Code(s): S92.131A - Displaced fracture of posterior process of right talus, initial encounter for closed fracture Category: Medical Plan: * Reviewed right ankle x-ray of the patient. Differential diagnosis includes fracture of the right posterior talus process, consistent with x-ray findings, clinical exam, and mechanism of injury. * Rx CT scan right ankle to evaluate posterior talus process fracture. * The patient was placed in a well-padded posterior splint to the right lower extremity. He was instructed to remain nonweightbearing with crutches. * He was instructed on R.I.C.E protocol. * Follow up in 2 weeks (2) Smoking history: Code(s): Z87.891 - Personal history of nicotine dependence Category: Social Hx Plan: * Patient was unable to quantify how much he smokes per day, however he states it is less than 1 pack. * He was recommended on smoking cessation otherwise at risk of delayed union/nonunion. * Tobacco use is known to impair fracture healing by reducing blood flow, inhibiting osteoblast function, and decreasing collagen synthesis. Studies have shown that smokers have up to a 2.3-fold increased risk of delayed union or nonunion compared to non-smokers, leading to a higher incidence of complications during the bone healing process. Orders: Orders CT ankle RT wo IV con Today S92.131A - Displaced fracture of posterior process of right talus, initial encounter for closed fracture [facility] Podiatry Dressing Today S92.131A - Displaced fracture of posterior process of right talus, initial encounter for closed fracture Coding Level of Care Code New Pt Level 3 (48758) Diagnoses Displaced fracture of posterior process of right talus, initial encounter for closed fracture S92.131A Smoking history Z87.891 CPT Codes Podiatry Dressing - CPT: 48582 - Short leg splint ([id number]) Time Spent (min) 35
[2025-06-09 08:39] VITALS: BMI 28.5
--- OUTSIDE RECORDS SUMMARY | 2025-06-09 09:35 | XMS_ITS | Encounter Summary ---
Author Organization [facility] Address [address] [place], [place] [id number] Phone Care Team Providers Care Community Reinvestment Act Officer Name Role Phone Joaquin Prasad MD Primary Care Provider [phone] Encounter Details Date Type Department Care Team (Late st Contact Info) Description 09/23/2014 Documentation [facility] [place] [facility] [address] [place] [address] Family Medicine, Physician [address] [place], [place] [id number] Social History Tobacco Use Types Packs/Day Years Used Date Smoking Tobacco: Never Assessed Sex and Gender Information Value Date Recorded Sex Assigned at Male 11/21/2019 9:41 AM EST Legal Sex Male 5:01 PM EDT Gender Identity Male 11/21/2019 9:41 AM EST Sexual Orientation Straight 11/21/2019 9: 41 AM EST documented as of this encounter Plan of Treatment Not on file documented as of this encounter Visit Diagnoses Not on filedocumented in this encounter Care Teams Community Reinvestment Act Officer Relationship Specialty Start Date End Date Joaquin Prasad MD [address] [place] [address] [place] [id number] PCP - General Pediatrics 06/11/18 03/07/23 documented as of this encounter
--- OUTSIDE RECORDS SUMMARY | 2025-06-09 09:35 | XMS_ITS | Clinical Summary ---
Author Organization [facility] Address [address] [place] [id number] Phone Care Team Providers Care Parking Control Officer Name Role Phone Unavailable Primary Care Provider Unavailabl e Allergies No known active allergies Medications ibuprofen 200 MG tabletIndication s:Fever, unspecified fever cause Take 2 tablets (400 mg total) by mouth every 6 (six) hours as needed for mild pain, moderate pain or fever. 30 tablet 2 8 Active Additional Information Patient not taking.Reported on 11/22/2022 Sodium Chloride-Sodium Bicarb (NETI POT SINUS WASH) 2300-700 MG kitIndications:A cute URI Administer 1 kit into affected nostril(s) every 6 (six) hours as needed (congestion). 1 each 8 Active Additional Information Patient not taking.Reported on 11/22/2022 Spacer/Aero-Hold ing Chambers (AEROCHAMBER PLUS TONYA-VU) miscIndications: Mild intermittent asthma without complication Ut dict 2 each 3 9 Active Additional Information Patient not taking.Reported on 11/22/2022 albuterol HFA (VENTOLIN HFA) 108 (90 Base) MCG/ACT inhalerIndicatio ns:Mild intermittent asthma without complication Inhale 2 puffs every 4 (four) hours as needed for wheezing. 1 Units 9 Active Additional Information Patient not taking.Reported on 02/02/2021 ketorolac 0.5 % ophthalmic solution 1 drop 4 times daily as needed. 2 Active ibuprofen 600 MG tablet Take 600 mg by mouth every 6 hours as needed. 2 Active acetaminophen 500 MG tablet Take 500 mg by mouth every 6 hours as needed. 2 Active oxyCODONE 5 MG immediate release tablet Take 5 mg by mouth every 6 hours as needed. 2 Active Active Problems Problem Noted Date Diagnosed Date Fracture of condylar process of left mandible, initial encounter for closed fracture 02/06/2022 Overview (01/18/2023): Added automatically from request for surgery [id number] ADHD (attention deficit hype ractivity disorder), combined type 08/12/2014 Overview (02/02/2021): 12/05 - was seeing counselor at [facility], stopped a month ago. 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 Does not appear to require systemic steroids. Doesn't have an aerochamber at home (so not using one). Will do MDI with spacer teaching and prescribe two aerochambers. Note for school as well. Immunizations Immunization Administration Dates Next Due DTaP 5 03/06/2006, 3,2002,05/09,2002 HPV Vaccine 9 Valent 03/02/2016 HPV, Quadrivalent 08/12/2014,04/25/2014 Hep A, ped/adol 10/03/2017,03/02/2016 Hep B, ped/adol 2002,2002,2002 Hib (PRP-T) 04/09/2003, 2,2002,03/07 IPV 03/06/2006, 3,2002,03/07 Influenza, injectable, quadrivalent 07/31/2015 Influenza, injectable, quadr ivalent, preservative free 11/21/2019,10/04/2018 Influenza, injectable, trivalent 05/29/2009 MMR 03/06/2006,01/03/2003 Meningococcal Conj (Menactra) MCV4P 10/04/2018,0 04/25/2014 Pneumococcal Conjugate 04/09/2003,2001,2002,03/07 Tdap 02/06/2022,04/25/2014 Varicella 04/25/2014,01/03/2003 Family History Medical History Relation Name Comments No Known Problems Father joce Anxiety disorder Mother phil Asthma Mother phil Carpal tunnel syndrome Mother phil Depression Mother phil Multiple sclerosis Mother phil Obesity Mother phil Anxiety disorder Other Breast cancer Other Diabetes Other Hyperlipidemia Other Hypertension Other Lupus Other Obesity Other Thyroid disease Other Asthma Sister garcía trejo Bipolar disorder Sister garcía trejo Migraines Sister garcía trejo Relation Name Status Comments Father joce Alive Father: Alive a nd well Mother phil Alive Mother: Multipl e sclerosis, Elevated cholesterol / Asthma Other Family history of Diabetes mellitus, Family history of *Dental caries, Family history of Deafness, Family history of Obesity, Family history of Migraines, Family history of Deafness, Family history of Obesity, No family history of *CVA/Stroke, Family history of *Heart Disease, Family history of Asthma, Family history of Strabismus, Family history of ADD/ADHD, Family history of Strabismus, No family history of *Sudden /NH under 55 Sister garcía trejo Alive Sister: Asthma, Migraines Social History Tobacco Use Types Packs/Day Years Used Date Smoking Tobacco: Never Smokeless Tobacco: Never Tobacco Cessation:Counseling Given: Yes Alcohol Use Standard Drinks/Week Comments Yes 0 (1 standard drink = 0.6 oz pur e alcohol) Hunger/Food Answer Date Recorded In the last 12 months, did y ou or your family ever eat less than you felt you should because there wasn't enough money for food? No 11/26/2020 Stable Housing Answer Date Recorded Are you worried that in the next 2 months you may not have stable housing? No 11/26/2020 Transportation Concerns Answer Date Rec orded In the last 12 months, have you or your family ever had to go without healthcare because you didn't have a way to get there? No 11/26/2020 Hazards in Home Answer Date Recorded Think about the place you li ve. Do you have problems with any of the following? Pests (mice or roaches), mold, no/not working smoke detectors, water leaks, no window guards. No 2020 Financing Utilities Answer Date Recorde d In the last 12 months, has t he electric, gas, oil, or water company threatened to shut off your services in your home? No 11/26/2020 Safety at Home Answer Date Recorded Are you or your family worried about feeling saf e in your home? No 11/26/2020 Outside Support Answer Date Recorded Do you feel that you need mo re support from other people or programs to help you care for yourself or your family? No 11/26/2020 Understanding Health Concerns Answer Da te Recorded Do you need help understandi ng your or your child's healthcare needs (diagnosis, medications, plan, etc.)? No 11/26/2020 Financing Health Concerns Answer Date R ecorded In the last 12 months, was t here a time when your child needed to see a doctor or get medications or supplies but could not because of cost? No 11/26/2020 Missing School or Work Answer Date Eduardo rded Did you or your child miss s chool or work because of a health problem that could have been avoided? No 11/26/2020 Sex and Gender Information Value Date Recorded Sex Assigned at Male 11/21/2019 9:41 AM EST Legal Sex Male 5:01 PM EDT Gender Identity Male 11/21/2019 9:41 AM EST Sexual Orientation Straight 11/21/2019 9: 41 AM EST Last Filed Vital Signs Vital Sign Reading Time Taken Comments Blood Pressure 124/80 02/02/2021 3:36 PM EDT Pulse 101 02/02/2021 3:36 PM EDT Temperature 39.4 C (103 F) 11/22/2022 4:03 PM EST Respiratory Rate - - Oxygen Saturation 98% 06/18/2019 3:28 PM EDT Inhaled Oxygen Concentration - - Weight 114 kg (251 lb 6.4 oz) 11/22/2022 4:03 PM EST Height 174 cm (5' 8.5 ) 11/26/2020 2:57 PM EST Body Mass Index 37.66 11/26/2020 2:57 PM EST Plan of Treatment Health Maintenance Due Date Last Done Comments Men B Vaccine (1 of 2 - Standard) 2018 Influenza Vaccines (#1) 2025 11/21/19 20, 10/04/2018, 07/31/2015, Additional history exists COVID-19 Vaccine (1 - 2023-2 5 season) 2025 DTaP,Tdap,and Td Vaccines (8 - Td or Tdap) 02/07/2032 02/06/2022, 04/25/2014, 03/06/2006, Additional history exists Hepatitis B Vaccines Completed 2002, 2002, 2002 HIB Vaccines Completed 04/09/2003, 06/19, 2002, Additional history exists Pneumococcal Vaccine Completed 04/09/2003, 2002, 2002, Additional history exists IPV Vaccines Completed 03/06/2006, 09/20, 2002, Additional history exists MMR Vaccines Completed 03/06/2006, 01/03/2003 Varicella Vaccines Completed 04/25/2014, 01/03/2003 HPV Vaccines Completed 03/02/2016, 07/20, 04/25/2014 Hepatitis A Vaccines Completed 10/03/2017, 03/02/20 16 Meningococcal Vaccine Completed 10/04/2018, 014
--- OUTSIDE RECORDS SUMMARY | 2025-06-09 09:35 | XMS_ITS | Encounter Summary ---
Author Organization [facility] Address [address] [place], [place] [id number] Phone Care Team Providers Care Electronic Instrument Trades Worker Name Role Phone Joaquin Prasad MD Primary Care Provider [phone] Encounter Details Date Type Department Care Team (Late st Contact Info) Description 11/27/2013 Documentation [facility] [place] [address] [place] [address] Family Medicine, Physician [address] [place] [phone] Social History Tobacco Use Types Packs/Day Years [...] on filedocumented in this encounter Care Teams Electronic Instrument Trades Worker Relationship Specialty Start Date End Date Joaquin Prasad MD [address] [place] [address] [place] [address] PCP - General Pediatrics 06/11/18 03/07/23 documented as of this encounter
--- OUTSIDE RECORDS SUMMARY | 2025-06-09 09:35 | XMS_ITS | Encounter Summary ---
Author Organization [facility] Address [address] [place], [place] [address] Phone Care Team Providers Care Oyster Shipper Name Role Phone Joaquin Prasad MD Primary Care Provider [phone] Encounter Details Date Type Department Care Team (Late st Contact Info) Description 07/28/2010 Documentation [facility] [place] Medicine [address] [place] [address] Family Medicine, Physician [address], [place] [phone] Social History Tobacco Use Types Packs/Day Years [...] on filedocumented in this encounter Care Teams Oyster Shipper Relationship Specialty Start Date End Date Joaquin Prasad MD [address] [place] [address] [place] [address] PCP - General Pediatrics 06/11/18 03/07/23 documented as of this encounter
--- OUTSIDE RECORDS SUMMARY | 2025-06-09 09:35 | XMS_ITS | Encounter Summary ---
Author Organization [facility] Address [address] [place], [place] [address] Phone Care Team Providers Care Web Analytics Developer Name Role Phone Joaquin Prasad MD Primary Care Provider [phone] Encounter Details Date Type Department Care Team (Late st Contact Info) Description 11/26/2013 Documentation [facility] [place] Medicine [address] [place] [address] Family Medicine, Physician [address], [place] [phone] Social History Tobacco Use Types Packs/Day Years [...] on filedocumented in this encounter Care Teams Web Analytics Developer Relationship Specialty Start Date End Date Joaquin Prasad MD [address] [place] [address] [place] [address] PCP - General Pediatrics 06/11/18 03/07/23 documented as of this encounter
--- OUTSIDE RECORDS SUMMARY | 2025-06-09 09:35 | XMS_ITS | Encounter Summary ---
Author Organization [facility] Address [address] [place], [place] [phone] Phone Care Team Providers Care Panel Monitor Name Role Phone Joaquin Prasad MD Primary Care Provider Encounter Details Date Type Department Care Team (Late st Contact Info) Description 09/23/2014 [place]ation [facility] [place] [address] [place] [address] Family Medicine, Physician [address] [place] [phone] Social History Tobacco Use Types Packs/Day Years [...] on filedocumented in this encounter Care Teams Panel Monitor Relationship Specialty Start Date End Date Joaquin Prasad MD [address] [place] [address] [place] [address] PCP - General Pediatrics 06/11/18 03/07/23 documented as of this encounter
--- OUTSIDE RECORDS SUMMARY | 2025-06-09 09:35 | XMS_ITS | Encounter Summary ---
Author Organization [facility] Address [address] [place], [place] [address] Phone Care Team Providers Care Barkeeper Name Role Phone Joaquin Prasad MD Primary Care Provider [phone] Encounter Details Date Type Department Care Team (Late st Contact Info) Description 12/10/2009 Documentation [facility] [place] Medicine [address] [place] [address] Family Medicine, Physician [address] [place], [place] [phone] Social History Tobacco Use Types Packs/Day Years [...] on filedocumented in this encounter Care Teams Barkeeper Relationship Specialty Start Date End Date Joaquin Prasad MD [address] [place] [address] [place] [address] PCP - General Pediatrics 06/11/18 03/07/23 documented as of this encounter
--- OUTSIDE RECORDS SUMMARY | 2025-06-09 09:35 | XMS_ITS | Encounter Summary ---
Author Organization [facility] Address [address] [place], [place] [address] Phone Care Team Providers Care Analytical Engineer Name Role Phone Joaquin Prasad MD Primary Care Provider [phone] Encounter Details Date Type Department Care Team (Late st Contact Info) Description 10/04/2011 Documentation [facility] [place] Family Medicine [address] [place] [address] Family Medicine, Physician [address], [place] [phone] Social History Tobacco Use Types Packs/Day Years [...] on filedocumented in this encounter Care Teams Analytical Engineer Relationship Specialty Start Date End Date Joaquin Prasad MD [address] [place] [address] [place] [address] PCP - General Pediatrics 06/11/18 03/07/23 documented as of this encounter
--- OUTSIDE RECORDS SUMMARY | 2025-06-09 09:35 | XMS_ITS | Encounter Summary ---
Author Organization [facility] Address [address] [place], [place] [address] Phone Care Team Providers Care Contract Clerk Automobile Name Role Phone Joaquin Prasad MD Primary Care Provider [phone] Encounter Details Date Type Department Care Team (Late st Contact Info) Description 12/10/2009 Documentation [facility] [place] Family Medicine [address] [place] [address] Family Medicine, Physician [address] [place] [phone] Social History Tobacco Use Types Packs/Day Years [...] on filedocumented in this encounter Care Teams Contract Clerk Automobile Relationship Specialty Start Date End Date Joaquin Prasad MD [address] [place] [address] [place] [address] PCP - General Pediatrics 06/11/18 03/07/23 documented as of this encounter
--- OUTSIDE RECORDS SUMMARY | 2025-06-09 09:35 | XMS_ITS | Encounter Summary ---
Author Organization [facility] Address [address] [place], [place] [address] Phone Care Team Providers Care Search Analyst Name Role Phone Joaquin Prasad MD Primary Care Provider [phone] Encounter Details Date Type Department Care Team (Late st Contact Info) Description 08/21/2012 Documentation [facility] [place] Family Medicine [address] [place] [address] Family Medicine, Physician [address] [place], [place] [phone] Social History Tobacco Use Types Packs/Day Years [...] on filedocumented in this encounter Care Teams Search Analyst Relationship Specialty Start Date End Date Joaquin Prasad MD [address] [place] [address] [place] [address] PCP - General Pediatrics 06/11/18 03/07/23 documented as of this encounter
--- OUTSIDE RECORDS SUMMARY | 2025-06-09 09:36 | XMS_ITS | Encounter Summary ---
Author Organization [facility] Address [address] [place], [place] [address] Phone Care Team Providers Care Manager Financial Systems Name Role Phone Joaquin Prasad MD Primary Care Provider [phone] Encounter Details Date Type Department Care Team (Late st Contact Info) Description 02/27/2017 Documentation [facility] [place] [address] [place] [address] Family Medicine, Physician [address] [place], [place] [phone] Social History Tobacco Use Types Packs/Day Years [...] on filedocumented in this encounter Care Teams Manager Financial Systems Relationship Specialty Start Date End Date Joaquin Prasad MD [address] [place] [address] [place] [address] PCP - General Pediatrics 06/11/18 03/07/23 documented as of this encounter
--- OUTSIDE RECORDS SUMMARY | 2025-06-09 09:36 | XMS_ITS | Encounter Summary ---
Author Organization [facility] Address [address] [place] [address] Phone Care Team Providers Care Patcher Wood Welder Name Role Phone Joaquin Prasad MD Primary Care Provider [phone] Encounter Details Date Type Department Care Team (Late st Contact Info) Description 05/04/2017 Conversion Encounter [facility] [place] [address] [place] [address] Social History Tobacco Use Types Packs/Day Years [...] on filedocumented in this encounter Care Teams Patcher Wood Welder Relationship Specialty Start Date End Date Joaquin Prasad MD [address] [place] [address] PCP - General Pediatrics 06/11/18 03/07/23 documented as of this encounter
== END 2025-06-09 09:12 | disposition home or self-care (01) ==
LOC: HO.HPODS 08:25
PROVIDERS: Visit Provider Student in an Organized Health Care Education/Training Program
DX: S92.131A Displaced fracture of posterior process of right talus, initial encounter for closed fracture (principal); Z87.891 Personal history of nicotine dependence
CPT/HCPCS: 29515; 99203

== ENCOUNTER → 2025-06-09 08:24 | Outpatient (BNVA) | payer OTHER, SELFPAY | PROVIDERS: Visit Provider Student in an Organized Health Care Education/Training Program | DX: S92.131A Displaced fracture of posterior process of right talus, initial encounter for closed fracture (principal); Z87.891 Personal history of nicotine dependence; Z71.6 Tobacco abuse counseling; X58.XXXA Exposure to other specified factors, initial encounter; Y93.67 Activity, basketball; Y92.9 Unspecified place or not applicable; Y99.9 Unspecified external cause status | CPT/HCPCS: 29515; 99202 ==

== ENCOUNTER 2025-06-24 15:00 | Outpatient (AMB) | payer OTHER, SELFPAY ==
--- NOTE | 2025-06-24 15:21 | A.OFFVIS_ITS ---
Vital Signs 06/24/25 15:23 Height 5 ft 9 in Weight 193 lb BMI 28.5 Intake Visit Reasons: OV - Right Talus Fracture 06/05/25 Intake Note: Serafin is a 25 year old male who presents today for a follow up of his Right Talus Fracture. He injured the heel on 06/05/25 while playing basketball. At this last visit he was placed in a posterior splint and instructed to remain non-w eight bearing. Patient reports he is still feeling pain and he mentions recently falling down the stairs and landing on his crutches. Allergies No Known Allergies Allergy (Verified 06/24/25 15:23) HPI HPI OV - Right Talus Fracture 06/05/25: Details: The patient is a 25-year-old male presenting today for 2 week follow up evaluation of right ankle injury sustained during a basketball game. He has been non-weight bearing to the right lower extremity with crutches and a splint. He denies any ankle pain at this time. He did not receive his CT scan. He is still out of work. History: The injury occurred when the patient landed on his right heel. He noted immediate pain and swelling. He went to the emergency room within an hour of the incident, where he was provided with an Aircast brace and crutches. At the initial visit, the patient reported that the ankle does not hurt while at rest but experiences sharp pain when attempting to bear weight or flex the toe. The patient has a history of previous ankle injuries, including a fracture and a sprain, but denies any current medical problems. Medical History: - Previous right ankle fracture - Previous right ankle sprain - Previous right toe fractures Social History: - Employment: Currently unemployed, had to reschedule a job interview due to injury - Tobacco use: Smokes regularly (<1PPD), advised that smoking may delay bone healing PFS Social History Substance Use Type: Marijuana Review of Systems Const All systems reviewed & are unremarkable except as noted in HPI and below Physical Exam Vital Signs: BMI result Body Mass Index 28.5 Extrem Other: *Bilateral Lower Extremity Focused Foot/Ankle Exam Vascular: DP/PT 2/4, CFT<3s to digits, TG warm to cool, mild right medial and posterior ankle edema, pedal hair present Derm: No Ecchymosis present to the right ankle. Neuro: Protective sensation grossly intact to bilateral lower extremities. Negative Tinel sign to the intermediate dorsal cutaneous nerve. Msk: No tenderness on palpation along the posterior aspect of the ankle anterior to the Achilles at the level of the talus. Mild pain on maximum dorsiflexion and plantar flexion of the ankle. No pain to the posterior ankle elicited on range of motion of the hallux. Deformities: No evidence of hammertoes, bunions, Charcot changes, or other structural abnormalities. Gait: Non-weight bearing in crutches Assessment & Plan Assessment & Plan (1) Displaced fracture of posterior process of right talus, initial encounter for closed fracture: Code(s): S92.131A - Displaced fracture of posterior process of right talus, initial encounter for closed fracture Category: Medical Plan: * Previously reviewed right ankle x-ray of the patient. Differential diagnosis includes fracture of the right posterior talus process, consistent with x-ray findings, clinical exam, and mechanism of injury. * Reinforced patient to receive his CT scan right ankle to evaluate posterior talus process fracture. * The splint was removed. The patient was transitioned into a tall cam boot. He was instructed to remain nonweightbearing with crutches. * Follow up in 2 weeks with new x-ray prior to visit. (2) Smoking history: Code(s): Z87.891 - Personal history of nicotine dependence Category: Social Hx Plan: * Patient was unable to quantify how much he smokes per day, however he states it is less than 1 pack. * He was recommended on smoking cessation otherwise at risk of delayed union/nonunion. * Tobacco use is known to impair fracture healing by reducing blood flow, inhibiting osteoblast function, and decreasing collagen synthesis. Studies have shown that smokers have up to a 2.3-fold increased risk of delayed union or nonunion compared to non-smokers, leading to a higher incidence of complications during the bone healing process. Orders: Orders XR ankle RT min 3V Today S92.131A - Displaced fracture of posterior process of right talus, initial encounter for closed fracture Coding Level of Care Code Est Pt Level 3 (22164) Diagnoses Displaced fracture of posterior process of right talus, initial encounter for closed fracture S92.131A Smoking history Z87.891 Time Spent (min) 25
[2025-06-24 15:23] VITALS: BMI 28.5
--- OUTSIDE RECORDS SUMMARY | 2025-06-24 18:17 | XMS_ITS | Encounter Summary ---
Author Organization [facility] Address [address] [place], [place] [address] Phone Care Team Providers Care Director Of Housing And Energy Services Name Role Phone Joaquin Prasad MD Primary Care Provider [phone] Encounter Details Date Type Department Care Team (Late st Contact Info) Description 12/10/2009 Documentation [facility] [place] Family Medicine [address] [place] [address] Family Medicine, Physician [address] [place], [place] [phone] Social History Tobacco Use Types Packs/Day Years [...] on filedocumented in this encounter Care Teams Director Of Housing And Energy Services Relationship Specialty Start Date End Date Joaquin Prasad MD [address] [place] [address] [place] [address] PCP - General Pediatrics 06/11/18 03/07/23 documented as of this encounter
--- OUTSIDE RECORDS SUMMARY | 2025-06-24 18:17 | XMS_ITS | Encounter Summary ---
Author Organization [facility] Address [address] [place], [place] [address] Phone Care Team Providers Care Industrial Custodian Name Role Phone Joaquin Prasad MD Primary Care Provider Encounter Details Date Type Department Care Team (Late st Contact Info) Description 09/23/2014 Documentation [facility] [place] Family [place] [address] [place] [address] Family Medicine, Physician [address] [place], [place] [phone] Social History Tobacco Use Types Packs/Day Years [...] on filedocumented in this encounter Care Teams Industrial Custodian Relationship Specialty Start Date End Date Joaquin Prasad MD [address] [place] [address] [place] [address] PCP - General Pediatrics 06/11/18 03/07/23 documented as of this encounter
--- OUTSIDE RECORDS SUMMARY | 2025-06-24 18:17 | XMS_ITS | Encounter Summary ---
Author Organization [facility] Address [address] [place], [place] [address] Phone Care Team Providers Care Package Line Operator Name Role Phone Joaquin Prasad MD Primary Care Provider [phone] Encounter Details Date Type Department Care Team (Late st Contact Info) Description 11/27/2013 Documentation [facility] [place] [address] [place] [address] Family Medicine, Physician [address] [place], [place] [phone] Social History Tobacco Use Types Packs/Day Years [...] on filedocumented in this encounter Care Teams Package Line Operator Relationship Specialty Start Date End Date Joaquin Prasad MD [address] [place] [address] [place] [address] PCP - General Pediatrics 06/11/18 03/07/23 documented as of this encounter
--- OUTSIDE RECORDS SUMMARY | 2025-06-24 18:17 | XMS_ITS | Encounter Summary ---
Author Organization [facility] Address [address] [place] [address] Phone Care Team Providers Care Beef Killer Name Role Phone Joaquin Prasad MD Primary Care Provider [phone] Encounter Details Date Type Department Care Team (Late st Contact Info) Description 05/04/2017 Conversion Encounter [facility] [place] [address] [place] [address] Social History Tobacco Use Types Packs/Day Years [...] on filedocumented in this encounter Care Teams Beef Killer Relationship Specialty Start Date End Date Joaquin Prasad MD [address] [place] [address] PCP - General Pediatrics 06/11/18 03/07/23 documented as of this encounter
--- OUTSIDE RECORDS SUMMARY | 2025-06-24 18:17 | XMS_ITS | Encounter Summary ---
Author Organization [facility] Address [address] [place], [place] [address] Phone Care Team Providers Care Electrician Second Name Role Phone Joaquin Prasad MD Primary Care Provider [phone] Encounter Details Date Type Department Care Team (Late st Contact Info) Description 11/26/2013 Documentation [facility] [place] [address] [place] [address] Family Medicine, Physician [address] [place], [place] [phone] Social History Tobacco Use Types Packs/Day Years [...] on filedocumented in this encounter Care Teams Electrician Second Relationship Specialty Start Date End Date Joaquin Prasad MD [address] [place] [address] [place] [address] PCP - General Pediatrics 06/11/18 03/07/23 documented as of this encounter
--- OUTSIDE RECORDS SUMMARY | 2025-06-24 18:17 | XMS_ITS | Encounter Summary ---
Author Organization [facility] Address [address] [place], [place] [address] Phone Care Team Providers Care Filler Leaf Cutter Long Name Role Phone Joaquin Prasad MD Primary Care Provider [phone] Encounter Details Date Type Department Care Team (Late st Contact Info) Description 12/10/[address] [facility] [place] Family Medicine [address] [place] [address] Family Medicine, Physician [address] [place], [place] [phone] Social History Tobacco Use Types Packs/Day Years [...] on filedocumented in this encounter Care Teams Filler Leaf Cutter Long Relationship Specialty Start Date End Date Joaquin Prasad MD [address] [place] [address] [place] [address] PCP - General Pediatrics 06/11/18 03/07/23 documented as of this encounter
--- OUTSIDE RECORDS SUMMARY | 2025-06-24 18:17 | XMS_ITS | Encounter Summary ---
Author Organization [facility] Address [address] [place], [place] [address] Phone Care Team Providers Care Supervisor Plate Pasting Name Role Phone Joaquin Prasad MD Primary Care Provider [phone] Encounter Details Date Type Department Care Team (Late st Contact Info) Description 08/21/2012 Documentation [facility] [place] [address] [place] [address] Family Medicine, Physician [address] [place], [place] [phone] Social History Tobacco Use Types Packs/Day Years [...] on filedocumented in this encounter Care Teams Supervisor Plate Pasting Relationship Specialty Start Date End Date Joaquin Prasad MD [address] [place] [address] [place] [address] PCP - General Pediatrics 06/11/18 03/07/23 documented as of this encounter
--- OUTSIDE RECORDS SUMMARY | 2025-06-24 18:17 | XMS_ITS | Encounter Summary ---
Author Organization [facility] Address [address] [place], [place] [address] Phone Care Team Providers Care Acrobatic Dancer Name Role Phone Joaquin Prasad MD Primary Care Provider [phone] Encounter Details Date Type Department Care Team (Late st Contact Info) Description 07/28/2010 [place] [facility] [place] [address] [place] [address] Family Medicine, Physician [address] [place] [phone] Social History Tobacco Use Types Packs/Day Years [...] on filedocumented in this encounter Care Teams Acrobatic Dancer Relationship Specialty Start Date End Date Joaquin Prasad MD [address] [place] [address] [place] [address] PCP - General Pediatrics 06/11/18 03/07/23 documented as of this encounter
--- OUTSIDE RECORDS SUMMARY | 2025-06-24 18:17 | XMS_ITS | Clinical Summary ---
Author Organization [facility] Address [address] [place] [address] Phone Care Team Providers Care Mail Order Biller Name Role Phone Unavailable Primary Care Provider [...] (01/18/2023): Added automatically from request for surgery [id number] ADHD (attention deficit hype ractivity disorder), combined type 08/12/2014 Overview (02/02/2021): 12/05 - was seeing counselor at [facility], stopped a month ago. Not on med [...] of Strabismus, No family history of *Sudden /[place] under 55 Sister garcía trejo Alive Sister: [...] - Standard) 2018 Influenza Vaccines (#1) 2025 11/21/19, 10/04/2018, 07/31/2015, Additional history exists COVID-19 Vaccine (1 - 2024-2 6 season) 2025 DTaP,Tdap,and Td Vaccines (8 - [...]
--- OUTSIDE RECORDS SUMMARY | 2025-06-24 18:17 | XMS_ITS | Encounter Summary ---
Author Organization [facility] Address [address] [place], [place] [address] Phone Care Team Providers Care Pest Control Operator Name Role Phone Joaquin Prasad MD Primary Care Provider [phone] Encounter Details Date Type Department Care Team (Late st Contact Info) Description 09/23/2014 Documentation [facility] [place] [address] [place] [address] Family Medicine, Physician [address] [place], [place] [phone] Social History Tobacco Use Types Packs/Day Years [...] on filedocumented in this encounter Care Teams Pest Control Operator Relationship Specialty Start Date End Date Joaquin Prasad MD [address] [place] [address] [place] [address] PCP - General Pediatrics 06/11/18 03/07/23 documented as of this encounter
--- OUTSIDE RECORDS SUMMARY | 2025-06-24 18:17 | XMS_ITS | Encounter Summary ---
Author Organization [facility] Address [address] [place], [place] [address] Phone Care Team Providers Care Pen Maker Name Role Phone Joaquin Prasad MD Primary Care Provider [phone] Encounter Details Date Type Department Care Team (Late st Contact Info) Description 10/04/2011 [place] [facility] [place] [address] [place] [address] Family Medicine, Physician [address] [place], [place] [phone] Social History Tobacco Use Types Packs/Day Years [...] on filedocumented in this encounter Care Teams Pen Maker Relationship Specialty Start Date End Date Joaquin Prasad MD [address] [place] [address] [place] [address] PCP - General Pediatrics 06/11/18 03/07/23 documented as of this encounter
--- OUTSIDE RECORDS SUMMARY | 2025-06-24 18:17 | XMS_ITS | Encounter Summary ---
Author Organization [facility] Address [address] [place], [place] [address] Phone Care Team Providers Care Grips Name Role Phone Joaquin Prasad MD Primary Care Provider [phone] Encounter Details Date Type Department Care Team (Late st Contact Info) Description 02/27/2017 Documentation [facility] [place] Medicine [address] [place] [address] Family Medicine, Physician [address] [place], [place] [phone] Social History Tobacco Use Types Packs/Day Years [...] on filedocumented in this encounter Care Teams Grips Relationship Specialty Start Date End Date Joaquin Prasad MD [address] [place] [address] [place] [address] PCP - General Pediatrics 06/11/18 03/07/23 documented as of this encounter
== END 2025-06-24 15:25 | disposition home or self-care (01) ==
LOC: HO.HPODS 15:01
PROVIDERS: Visit Provider Student in an Organized Health Care Education/Training Program
DX: S92.131A Displaced fracture of posterior process of right talus, initial encounter for closed fracture (principal); Z87.891 Personal history of nicotine dependence
CPT/HCPCS: 99213

== ENCOUNTER → 2025-06-24 15:00 | Outpatient (BNVA) | payer OTHER, SELFPAY | PROVIDERS: Visit Provider Student in an Organized Health Care Education/Training Program | DX: S92.131D Displaced fracture of posterior process of right talus, subsequent encounter for fracture with routine healing (principal); Z87.891 Personal history of nicotine dependence | CPT/HCPCS: 99212 ==

== ENCOUNTER 2025-07-10 12:14 | Outpatient (REF) | payer OTHER, SELFPAY ==
--- NOTE | ~2025-07-10 | XR_ITS ---
EXAMINATION: XR ANKLE 3 OR MORE VIEWS RIGHT HISTORY: S92.131A - Displaced fracture of posterior process of right talus... COMPARISON: Comparison is made with the prior examination dated 06/05/2025. FINDINGS: Four views of the right ankle are submitted. Osseous mineralization is normal. Again seen is a probable prominent os trigonum. There is no definite fracture or dislocation. The joint spaces are preserved. The soft tissues are unremarkable. XR/XR ankle RT min 3V IMPRESSION: No definite evidence of fracture of the right ankle. Electronically signed by: Jose Luis Gilbert MD 07/10/2025 12:37 PM EDT
--- OUTSIDE RECORDS SUMMARY | 2025-07-10 15:26 | XMS_ITS | Clinical Summary ---
Author Organization [facility] Address [address] [place] [address] Phone Care Team Providers Care Slope Hoist Operator Name Role Phone Unavailable Primary Care Provider [...] (01/18/2023): Added automatically from request for surgery [id number] ADHD (attention deficit hype ractivity disorder), combined type 08/12/2014 Overview (02/02/2021): 12/05 - was seeing counselor at [facility], stopped a month ago. Not on [...] of Strabismus, No family history of *Sudden /[place] under 55 Sister garcía trejo Alive Sister: [...]
--- OUTSIDE RECORDS SUMMARY | 2025-07-10 15:26 | XMS_ITS | Encounter Summary ---
Author Organization [facility] Address [address] [place], [place] [address] Phone Care Team Providers Care Polysomnography Tech Name Role Phone Joaquin Prasad MD Primary Care Provider [phone] Encounter Details Date Type Department Care Team (Late st Contact Info) Description 11/26/2013 Documentation [facility] [place] Family Medicine [address] [place] [address] Family Medicine, Physician [address] [place], [place] [phone] Social History Tobacco Use Types Packs/Day Years [...] on filedocumented in this encounter Care Teams Polysomnography Tech Relationship Specialty Start Date End Date Joaquin Prasad MD [address] [place] [address] [place] [address] PCP - General Pediatrics 06/11/18 03/07/23 documented as of this encounter
--- OUTSIDE RECORDS SUMMARY | 2025-07-10 15:27 | XMS_ITS | Encounter Summary ---
Author Organization [facility] Address [address] [place], [place] [address] Phone Care Team Providers Care Non Destructive Evaluation Technician Name Role Phone Joaquin Prasad MD Primary Care Provider [phone] Encounter Details Date Type Department Care Team (Late st Contact Info) Description 11/27/2013 Documentation [facility] [place] Family [place] [address] [place] [address] Family Medicine, Physician [address] [place], [place] [phone] Social History Tobacco Use Types Packs/Day Years [...] on filedocumented in this encounter Care Teams Non Destructive Evaluation Technician Relationship Specialty Start Date End Date Joaquin Prasad MD [address] [place] [address] [place] [address] PCP - General Pediatrics 06/11/18 03/07/23 documented as of this encounter
--- OUTSIDE RECORDS SUMMARY | 2025-07-10 15:27 | XMS_ITS | Encounter Summary ---
Author Organization [facility] Address [address] [place], [place] [address] Phone Care Team Providers Care Pattern Repair Person Name Role Phone Joaquin Prasad MD Primary Care Provider [phone] Encounter Details Date Type Department Care Team (Late st Contact Info) Description 12/10/2009 Documentation [facility] [place] [address] [place] [address] Family Medicine, Physician [address] [place], [place] [phone] Social History Tobacco Use Types Packs/Day Years [...] on filedocumented in this encounter Care Teams Pattern Repair Person Relationship Specialty Start Date End Date Joaquin Prasad MD [address] [place] [address] [place] [address] PCP - General Pediatrics 06/11/18 03/07/23 documented as of this encounter
--- OUTSIDE RECORDS SUMMARY | 2025-07-10 15:27 | XMS_ITS | Encounter Summary ---
Author Organization [facility] Address [address] [place] [address] Phone Care Team Providers Care Race Relations Adviser Name Role Phone Joaquin Prasad MD Primary Care Provider [phone] Encounter Details Date Type Department Care Team (Late st Contact Info) Description 05/04/2017 Conversion Encounter [facility] [place] [address] [place] [address] Social History Tobacco Use Types Packs/Day Years [...] on filedocumented in this encounter Care Teams Race Relations Adviser Relationship Specialty Start Date End Date Joaquin Prasad MD [address] [place] [address] PCP - General Pediatrics 06/11/18 03/07/23 documented as of this encounter
--- OUTSIDE RECORDS SUMMARY | 2025-07-10 15:27 | XMS_ITS | Encounter Summary ---
Author Organization [facility] Address [address] [place], [place] [address] Phone Care Team Providers Care Boilermaker Fitter Name Role Phone Joaquin Prasad MD Primary Care Provider [phone] Encounter Details Date Type Department Care Team (Late st Contact Info) Description 08/21/2012 Documentation [facility] [place] [address] [place] [address] Family Medicine, Physician [address] [place], [place] [phone] Social History Tobacco Use Types Packs/Day Years [...] on filedocumented in this encounter Care Teams Boilermaker Fitter Relationship Specialty Start Date End Date Joaquin Prasad MD [address] [place] [address] [place] [address] PCP - General Pediatrics 06/11/18 03/07/23 documented as of this encounter
--- OUTSIDE RECORDS SUMMARY | 2025-07-10 15:27 | XMS_ITS | Encounter Summary ---
Author Organization [facility] Address [address] [place], [place] [address] Phone Care Team Providers Care Counter Pocket Trimmer Name Role Phone Joaquin Prasad MD Primary Care Provider [phone] Encounter Details Date Type Department Care Team (Late st Contact Info) Description 09/23/2014 Documentation [facility] [place] Family Medicine [address] [place] [address] Family Medicine, Physician [address] [place], [place] [phone] Social History Tobacco Use Types Packs/Day Years [...] on filedocumented in this encounter Care Teams Counter Pocket Trimmer Relationship Specialty Start Date End Date Joaquin rPasad MD [address] [place] [address] [place] [address] PCP - General Pediatrics 06/11/18 03/07/23 documented as of this encounter
--- OUTSIDE RECORDS SUMMARY | 2025-07-10 15:27 | XMS_ITS | Encounter Summary ---
Author Organization [facility] Address [address] [place], [place] [address] Phone Care Team Providers Care Lining Sewer Name Role Phone Joaquin Prasad MD Primary Care Provider Encounter Details Date Type Department Care Team (Late st Contact Info) Description 09/23/2014 [place] [facility] [place] [address] [place] [address] Family Medicine, Physician [address] [place], [place] [phone] Social History Tobacco Use Types Packs/Day Years [...] on filedocumented in this encounter Care Teams Lining Sewer Relationship Specialty Start Date End Date Joaquin Prasad MD [address] [place] [address] [place] [address] PCP - General Pediatrics 06/11/18 03/07/23 documented as of this encounter
--- OUTSIDE RECORDS SUMMARY | 2025-07-10 15:27 | XMS_ITS | Encounter Summary ---
Author Organization [facility] Address [address] [place], [place] [address] Phone Care Team Providers Care Computer Aided Drafter Name Role Phone Joaquin Prasad MD Primary Care Provider Encounter Details Date Type Department Care Team (Late st Contact Info) Description 02/27/2017 [place]ation [facility] [place] [address] [place] [address] Family Medicine, Physician [address] [place], [place] [phone] Social History Tobacco Use Types Packs/Day Years [...] on filedocumented in this encounter Care Teams Computer Aided Drafter Relationship Specialty Start Date End Date Joaquin Prasad MD [address] [place] [address] [place] [address] PCP - General Pediatrics 06/11/18 03/07/23 documented as of this encounter
--- OUTSIDE RECORDS SUMMARY | 2025-07-10 15:27 | XMS_ITS | Encounter Summary ---
Author Organization [facility] Address [address] [place], [place] [address] Phone Care Team Providers Care Bezel Cutter Name Role Phone Joaquin Prasad MD Primary Care Provider [phone] Encounter Details Date Type Department Care Team (Late st Contact Info) Description 07/28/2010 Document[place] [facility] [place] [address] [place] [address] Family Medicine, Physician [address] [place], [place] [phone] Social History Tobacco Use Types Packs/Day Years [...] on filedocumented in this encounter Care Teams Bezel Cutter Relationship Specialty Start Date End Date Joaquin Prasad MD [address] [place] [address] [place] [address] PCP - General Pediatrics 06/11/18 03/07/23 documented as of this encounter
--- OUTSIDE RECORDS SUMMARY | 2025-07-10 15:27 | XMS_ITS | Encounter Summary ---
Author Organization [facility] Address [address] [place], [place] [address] Phone Care Team Providers Care Rn Eligibility Name Role Phone Joaquin Prasad MD Primary Care Provider [phone] Encounter Details Date Type Department Care Team (Late st Contact Info) Description 10/04/2011 Documentation [facility] [place] Family Medicine [address] [place] [address] Family Medicine, Physician [address] [place], [place] [phone] Social History Tobacco Use Types Packs/Day Years [...] on filedocumented in this encounter Care Teams Rn Eligibility Relationship Specialty Start Date End Date Joaquin Prasad MD [address] [place] [address] [place] [address] PCP - General Pediatrics 06/11/18 03/07/23 documented as of this encounter
--- OUTSIDE RECORDS SUMMARY | 2025-07-10 15:27 | XMS_ITS | Encounter Summary ---
Author Organization [facility] Address [address] [place], [place] [address] Phone Care Team Providers Care Time Study Analyst Name Role Phone Joaquin Prasad MD Primary Care Provider [phone] Encounter Details Date Type Department Care Team (Late st Contact Info) Description 12/10/2009 Documentation [facility] Family Medicine [address] [place] [address] Family Medicine, Physician [address] [place], [place] [phone] Social History Tobacco Use Types Packs/Day Years [...] on filedocumented in this encounter Care Teams Time Study Analyst Relationship Specialty Start Date End Date Joaquin Prasad MD [address] [place] [address] [place] [address] PCP - General Pediatrics 06/11/18 03/07/23 documented as of this encounter
== END 2025-07-10 12:15 | disposition home or self-care (01) ==
LOC: HO.XRAY 12:14
PROVIDERS: Visit Provider Student in an Organized Health Care Education/Training Program
DX: S92.131A Displaced fracture of posterior process of right talus, initial encounter for closed fracture (principal)
CPT/HCPCS: 73610

== ENCOUNTER → 2025-07-10 12:23 | Outpatient (BNV) | payer OTHER, SELFPAY | PROVIDERS: Visit Provider Radiology Diagnostic Radiology | DX: S92.131A Displaced fracture of posterior process of right talus, initial encounter for closed fracture (principal) | CPT/HCPCS: 73610 ==

== ENCOUNTER 2025-07-10 14:31 | Outpatient (AMB) | payer OTHER, SELFPAY ==
--- NOTE | 2025-07-10 14:44 | MHC.OFFVIS ---
Vital Signs 07/10/25 15:11 Height 5 ft 9 in Weight 193 lb BMI 28.5 Intake Visit Reasons: Review x-ray and CT scan Intake Note: Serafin is a 25 year old male who present to the office today for a 2 week follow up visit to review X-rays and CT scan. At last visit patient was transitioned into a tall cam boot. He was instructed to remain non weightbearing with crutches. Pt states he is no longer experiencing any pain and he has remained non weight bearing. Patient has an appointment with CT on 07/26/25. Allergies No Known Allergies Allergy (Verified 07/10/25 15:11) HPI HPI Review x-ray and CT scan: Details: The patient is a 25-year-old male presenting today for 2 week follow up evaluation of right ankle injury sustained during a basketball game. He is now about 1 month post injury. He has been non-weight bearing to the right lower extremity with a Cam boot. No longer experiencing any pain. He is scheduled for the CT scan 2 weeks from now. He is still out of work. History: The injury occurred when the patient landed on his right heel. He noted immediate pain and swelling. He went to the emergency room within an hour of the incident, where he was provided with an Aircast brace and crutches. At the initial visit, the patient reported that the ankle does not hurt while at rest but experiences sharp pain when attempting to bear weight or flex the toe. The patient has a history of previous ankle injuries, including a fracture and a sprain, but denies any current medical problems. Medical History: - Previous right ankle fracture - Previous right ankle sprain - Previous right toe fractures Social History: - Employment: Currently unemployed, had to reschedule a job interview due to injury - Tobacco use: Smokes regularly (<1PPD), advised that smoking may delay bone healing [facility] Social History Substance Use Type: Marijuana Review of Systems Const All systems reviewed & are unremarkable except as noted in HPI and below Physical Exam Extrem Other: *Bilateral Lower Extremity Focused Foot/Ankle Exam Vascular: DP/PT 2/4, CFT<3s to digits, TG warm to cool, mild right medial and posterior ankle edema, pedal hair present Derm: No Ecchymosis present to the right ankle. Neuro: Protective sensation grossly intact to bilateral lower extremities. Negative Tinel sign to the intermediate dorsal cutaneous nerve. Msk: No tenderness on palpation along the posterior aspect of the ankle anterior to the Achilles at the level of the talus. Now with no pain on maximum dorsiflexion and plantar flexion of the ankle. No pain to the posterior ankle elicited on range of motion of the hallux. Deformities: No evidence of hammertoes, bunions, Charcot changes, or other structural abnormalities. Gait: Non-weight bearing in crutches Results Reviewed Results Reviewed: Podiatry X-ray Read: 07/10/2025 X-ray Right ankle 3 views (AP, Mortise, Lateral) reviewed which shows no marked difference in the radiolucency of the posterior process of the talus. No other fractures of the tibia/talus/calcaneus, no dislocations, osteochondral defects, or other gross abnormalities. Anatomic alignment of the tibiotalar joint. Bone density is within normal limits. I personally reviewed the imaging and my findings are listed above. Assessment & Plan Assessment & Plan (1) Displaced fracture of posterior process of right talus, initial encounter for closed fracture: Code(s): S92.131A - Displaced fracture of posterior process of right talus, initial encounter for closed fracture Category: Medical Plan: Previously reviewed right ankle x-ray of the patient. Differential diagnosis includes fracture of the right posterior talus process, consistent with x-ray findings, clinical exam, and mechanism of injury. Transition to weight-bearing in Cam boot as tolerated. Instructed patient to remove the cam boot within 1-2 weeks. Instructed to the patient to begin range of motion exercises for the right ankle. Follow up in 1 month with new x-ray. (2) Smoking history: Code(s): Z87.891 - Personal history of nicotine dependence Category: Social Hx Plan: Patient was unable to quantify how much he smokes per day, however he states it is less than 1 pack. He was recommended on smoking cessation otherwise at risk of delayed union/nonunion. Tobacco use is known to impair fracture healing by reducing blood flow, inhibiting osteoblast function, and decreasing collagen synthesis. Studies have shown that smokers have up to a 2.3-fold increased risk of delayed union or nonunion compared to non-smokers, leading to a higher incidence of complications during the bone healing process. Orders: Orders XR ankle RT min 3V 3 Weeks S92.131A - Displaced fracture of posterior process of right talus, initial encounter for closed fracture Coding Level of Care Code Est Pt Level 3 (65852) Diagnoses Displaced fracture of posterior process of right talus, initial encounter for closed fracture S92.131A Smoking history Z87.891 Time Spent (min) 25
[2025-07-10 15:11] VITALS: BMI 28.5
== END 2025-07-10 14:57 | disposition home or self-care (01) ==
LOC: HO.HPODS 14:32
PROVIDERS: Visit Provider Student in an Organized Health Care Education/Training Program
DX: S92.131A Displaced fracture of posterior process of right talus, initial encounter for closed fracture (principal); Z87.891 Personal history of nicotine dependence
CPT/HCPCS: 99213

== ENCOUNTER 2025-07-26 07:03 | Outpatient (REF) | payer OTHER, SELFPAY ==
--- NOTE | ~2025-07-26 | CT_ITS ---
EXAMINATION: CT right ankle CLINICAL INFORMATION: Displaced fracture of posterior process of talus talus. COMPARISON: X-ray 07/10/2025 TECHNIQUE: Axial imaging. Sagittal and coronal reconstructions. FINDINGS: Redemonstrated is a ossification, with corticated margins measuring 1.5 x 0.8 cm, posterior to the talus. 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 There is mild degenerative changes between this ossicle and posterior talus.. Tibiotalar articulation is maintained without evidence of acute fracture or dislocation. No acute fracture or malalignment is otherwise seen. No significant arthritic changes or erosions are seen. Limited evaluation of tendons. The Achilles tendon is grossly intact. The proximal ankle tendons grossly appear intact. 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 Mild degeneration in the articulation between the os trigonum/talus. *Otherwise, no CT evidence of acute fracture or dislocation. Electronically signed by: Stalin Quinteros MD 07/28/2025 09:24 AM [facility]
--- OUTSIDE RECORDS SUMMARY | 2025-07-26 07:07 | XMS_ITS | Encounter Summary ---
Author Organization [facility] Address [address] [place], [place] [address] Phone Care Team Providers Care Basic Combatant Swimmer Name Role Phone Joaquin Prasad MD Primary Care Provider [phone] Encounter Details Date Type Department Care Team (Late st Contact Info) Description 09/23/2014 Documentation [facility] [place] Family Medicine [address] [place] [address] Family Medicine, Physician [address] [place], [place] [phone] Social History Tobacco Use Types Packs/Day Years [...] on filedocumented in this encounter Care Teams Basic Combatant Swimmer Relationship Specialty Start Date End Date Joaquin Prasad MD [address] [place] [address] [place] [address] PCP - General Pediatrics 06/11/18 03/07/23 documented as of this encounter
--- OUTSIDE RECORDS SUMMARY | 2025-07-26 07:07 | XMS_ITS | Encounter Summary ---
Author Organization [facility] Address [address] [place], [place] [address] Phone Care Team Providers Care Bilingual Call Center Representative Name Role Phone Joaquin Prasad MD Primary Care Provider [phone] Encounter Details Date Type Department Care Team (Late st Contact Info) Description 12/10/2009 Documentation [facility] [place] Family Medicine [address] [place] [address] Family Medicine, Physician [address] [place], [place] [phone] Social History Tobacco Use Types Packs/Day Years [...] on filedocumented in this encounter Care Teams Bilingual Call Center Representative Relationship Specialty Start Date End Date Joaquin Prasad MD [address] [place] [address] [place] [address] PCP - General Pediatrics 06/11/18 03/07/23 documented as of this encounter
--- OUTSIDE RECORDS SUMMARY | 2025-07-26 07:07 | XMS_ITS | Encounter Summary ---
Author Organization [facility] Address [address] [place], [place] [address] Phone Care Team Providers Care Vision Specialist Name Role Phone Joaquin Prasad MD Primary Care Provider [phone] Encounter Details Date Type Department Care Team (Late st Contact Info) Description 02/27/2017 Documentation [facility] [place] [address] [place] [address] Family Medicine, Physician [address] [place], [place] [phone] Social History Tobacco Use Types Packs/Day Years [...] on filedocumented in this encounter Care Teams Vision Specialist Relationship Specialty Start Date End Date Joaquin Prasad MD [address] [place] [address] [place] [address] PCP - General Pediatrics 06/11/18 03/07/23 documented as of this encounter
--- OUTSIDE RECORDS SUMMARY | 2025-07-26 07:07 | XMS_ITS | Encounter Summary ---
Author Organization [facility] Address [address] [place], [place] [address] Phone Care Team Providers Care Service Desk Associate Name Role Phone Joaquin Prasad MD Primary Care Provider [phone] Encounter Details Date Type Department Care Team (Late st Contact Info) Description 11/26/2013 Documentation [facility] [place] [address] [place] [address] Family Medicine, Physician [address] [place], [place] [phone] Social History Tobacco Use Types Packs/Day Years [...] on filedocumented in this encounter Care Teams Service Desk Associate Relationship Specialty Start Date End Date Joaquin Prasad MD [address] [place] [address] [place] [address] PCP - General Pediatrics 06/11/18 03/07/23 documented as of this encounter
--- OUTSIDE RECORDS SUMMARY | 2025-07-26 07:07 | XMS_ITS | Encounter Summary ---
Author Organization [facility] Address [address] [place] [address] Phone Care Team Providers Care Gravity Prospecting Observer Name Role Phone Joaquin Prasad MD Primary Care Provider [phone] Encounter Details Date Type Department Care Team (Late st Contact Info) Description 05/04/2017 Conversion Encounter [facility] [place] [address] [place] [address] Social History Tobacco Use Types Packs/Day Years [...] on filedocumented in this encounter Care Teams Gravity Prospecting Observer Relationship Specialty Start Date End Date Joaquin Prasad MD [address] [place] [address] PCP - General Pediatrics 06/11/18 03/07/23 documented as of this encounter
--- OUTSIDE RECORDS SUMMARY | 2025-07-26 07:07 | XMS_ITS | Encounter Summary ---
Author Organization [facility] Address [address] [place], [place] [address] Phone Care Team Providers Care Medical Sonographer Name Role Phone Joaquin Prasad MD Primary Care Provider [phone] Encounter Details Date Type Department Care Team (Late st Contact Info) Description 10/04/2011 Documentation [facility] [place] [address] [place] [address] Family Medicine, Physician [address] [place], [place] [phone] Social History Tobacco Use Types Packs/Day Years [...] on filedocumented in this encounter Care Teams Medical Sonographer Relationship Specialty Start Date End Date Joaquin Prasad MD [address] [place] [address] [place] [address] PCP - General Pediatrics 06/11/18 03/07/23 documented as of this encounter
--- OUTSIDE RECORDS SUMMARY | 2025-07-26 07:07 | XMS_ITS | Encounter Summary ---
Author Organization [facility] Address [address] [place], [place] [address] Phone Care Team Providers Care Kindergarten Tutor Name Role Phone Joaquin Prasad MD Primary Care Provider [phone] Encounter Details Date Type Department Care Team (Late st Contact Info) Description 08/21/2012 Documentation [facility] [place] [address] [place] [address] Family Medicine, Physician [address] [place], [place] [phone] Social History Tobacco Use Types Packs/Day Years [...] on filedocumented in this encounter Care Teams Kindergarten Tutor Relationship Specialty Start Date End Date Joaquin Prasad MD [address] [place] [address] [place] [address] PCP - General Pediatrics 06/11/18 03/07/23 documented as of this encounter
--- OUTSIDE RECORDS SUMMARY | 2025-07-26 07:07 | XMS_ITS | Clinical Summary ---
Author Organization [facility] Address [address] [place] [address] Phone Care Team Providers Care Mail Teller Name Role Phone Unavailable Primary Care Provider [...] (01/18/2023): Added automatically from request for surgery [id number] ADHD (attention deficit hype ractivity disorder), combined type 08/12/2014 Overview (02/02/2021): 12/05 - was seeing counselor at [facility], stopped a month ago. Not on med [...] of Strabismus, No family history of *Sudden /[place] under 55 Sister garcía trejo Alive Sister: [...]
--- OUTSIDE RECORDS SUMMARY | 2025-07-26 07:07 | XMS_ITS | Encounter Summary ---
Author Organization [facility] Address [address] [place], [place] [address] Phone Care Team Providers Care Lang Path Therapist Name Role Phone Joaquin Prasad MD Primary Care Provider [phone] Encounter Details Date Type Department Care Team (Late st Contact Info) Description 07/28/2010 Documentation [facility] [place] Medicine [address] [place] [address] Family Medicine, Physician [address] [place], [place] [phone] Social History Tobacco Use Types Packs/Day Years [...] on filedocumented in this encounter Care Teams Lang Path Therapist Relationship Specialty Start Date End Date Joaquin Prasad MD [address] [place] [address] [place] [address] PCP - General Pediatrics 06/11/18 03/07/23 documented as of this encounter
--- OUTSIDE RECORDS SUMMARY | 2025-07-26 07:07 | XMS_ITS | Encounter Summary ---
Author Organization [facility] Address [address] [place], [place] [address] Phone Care Team Providers Care Ui Ux Developer Name Role Phone Joaquin Prasad MD Primary Care Provider [phone] Encounter Details Date Type Department Care Team (Late st Contact Info) Description 11/27/2013 Documentation [facility] [place] Family Medicine [address] [place] [address] Family Medicine, Physician [address] [place], [place] [phone] Social History Tobacco Use Types Packs/Day Years [...] on filedocumented in this encounter Care Teams Ui Ux Developer Relationship Specialty Start Date End Date Joaquin Prasad MD [address] [place] [address] [place] [address] PCP - General Pediatrics 06/11/18 03/07/23 documented as of this encounter
--- OUTSIDE RECORDS SUMMARY | 2025-07-26 07:07 | XMS_ITS | Encounter Summary ---
Author Organization [facility] Address [address] [place], [place] [address] Phone Care Team Providers Care Artificial Stone Applicator Name Role Phone Joaquin Prasad MD Primary Care Provider [phone] Encounter Details Date Type Department Care Team (Late st Contact Info) Description 09/23/2014 Documentation [facility] [place] [address] [place] [address] Family Medicine, Physician [address] [place], [place] [phone] Social History Tobacco Use Types Packs/Day Years [...] on filedocumented in this encounter Care Teams Artificial Stone Applicator Relationship Specialty Start Date End Date Joaquin Prasad MD [address] [place] [address] [place] [address] PCP - General Pediatrics 06/11/18 03/07/23 documented as of this encounter
--- OUTSIDE RECORDS SUMMARY | 2025-07-26 07:07 | XMS_ITS | Encounter Summary ---
Author Organization [facility] Address [address] [place], [place] [address] Phone Care Team Providers Care Senior Technical Specialist Name Role Phone Joaquin Prasad MD Primary Care Provider [phone] Encounter Details Date Type Department Care Team (Late st Contact Info) Description 12/10/2009 Documentation [facility] [place] Family Medicine [address] [place] [address] Family Medicine, Physician [address] [place], [place] [phone] Social History Tobacco Use Types Packs/Day Years [...] on filedocumented in this encounter Care Teams Senior Technical Specialist Relationship Specialty Start Date End Date Joaquin Prasad MD [address] [place] [address] [place] [address] PCP - General Pediatrics 06/11/18 03/07/23 documented as of this encounter
== END 2025-07-26 07:04 | disposition home or self-care (01) ==
LOC: HO.CT 07:03
PROVIDERS: Visit Provider Student in an Organized Health Care Education/Training Program
DX: S92.131A Displaced fracture of posterior process of right talus, initial encounter for closed fracture (principal)
CPT/HCPCS: 73700

== ENCOUNTER 2025-08-11 13:56 | Outpatient (AMB) | payer OTHER, SELFPAY ==
--- NOTE | 2025-08-11 13:58 | A.OFFVIS_ITS ---
Intake Visit Reasons: right foot fu Intake Note: Serafin is a 25 year old male who presents today for a follow up on his right talus fracture. At his last visit patient was advised to transition to weight bearing in cam boot as tolerated. He was instructed to remove the boot in 1-2 weeks and to begin range of motion exercises for the right ankle. New X ray were ordered at last visit and CT was done on 07/26/25. Patient reports he is doing well and he is not having pain at the moment. 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 Mild degeneration in the articulation between the os trigonum/talus. *Otherwise, no CT evidence of acute fracture or dislocation. Allergies No Known Allergies Allergy (Verified 08/11/25 13:59) HPI HPI right foot fu: Details: The patient is a 25-year-old male presenting today for 1 month follow up evaluation of right ankle injury sustained during a basketball game. He is now about 2 months post injury. He has been weight-bearing to the right lower extremity with a Cam boot. No longer experiencing any pain. He took his boot off once and had experienced sharp pains to his ankle. History: The injury occurred when the patient landed on his right heel. He noted immediate pain and swelling. He went to the emergency room within an hour of the incident, where he was provided with an Aircast brace and crutches. At the initial visit, the patient reported that the ankle does not hurt while at rest but experiences sharp pain when attempting to bear weight or flex the toe. The patient has a history of previous ankle injuries, including a fracture and a sprain, but denies any current medical problems. Medical History: - Previous right ankle fracture - Previous right ankle sprain - Previous right toe fractures Social History: - Employment: Currently unemployed, had to reschedule a job interview due to injury - Tobacco use: Smokes regularly (<1PPD), advised that smoking may delay bone healing [facility] Social History Substance Use Type: Marijuana Review of Systems Const All systems reviewed & are unremarkable except as noted in HPI and below Physical Exam Extrem Other: *Bilateral Lower Extremity Focused Foot/Ankle Exam Vascular: DP/PT 2/4, CFT<3s to digits, TG warm to cool, mild right medial and posterior ankle edema, pedal hair present Derm: No Ecchymosis present to the right ankle. Neuro: Protective sensation grossly intact to bilateral lower extremities. Negative Tinel sign to the intermediate dorsal cutaneous nerve. Msk: No tenderness on palpation along the posterior aspect of the ankle anterior to the Achilles at the level of the talus. No pain on maximum dorsiflexion and plantar flexion of the ankle. No pain to the posterior ankle elicited on range of motion of the hallux. Deformities: No evidence of hammertoes, bunions, Charcot changes, or other structural abnormalities. 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 Mild degeneration in the articulation between the os trigonum/talus. Assessment & Plan Assessment & Plan (1) Displaced fracture of posterior process of right talus, initial encounter for closed fracture: Code(s): S92.131A - Displaced fracture of posterior process of right talus, initial encounter for closed fracture Category: Medical Plan: * Reviewed right ankle CT with the patient. * Recommended discontinuing cam boot. may use ankle compression sleeve as needed. * Instructed to the patient to begin strengthening exercises for the right ankle. * Follow up in 6 weeks as needed (2) Smoking history: Code(s): Z87.891 - Personal history of nicotine dependence Category: Social Hx Plan: * Patient was unable to quantify how much he smokes per day, however he states it is less than 1 pack. * He was recommended on smoking cessation otherwise at risk of delayed u nion/nonunion. * Tobacco use is known to impair fracture healing by reducing blood flow, inhibiting osteoblast function, and decreasing collagen synthesis. Studies have shown that smokers have up to a 2.3-fold increased risk of delayed union or nonunion compared to non-smokers, leading to a higher incidence of complications during the bone healing process. Coding Level of Care Code Est Pt Level 3 (86823) Diagnoses Displaced fracture of posterior process of right talus, initial encounter for closed fracture S92.131A Smoking history Z87.891 Time Spent (min) 35
--- OUTSIDE RECORDS SUMMARY | 2025-08-11 18:51 | XMS_ITS | Encounter Summary ---
Author Organization [facility] Address [address] [place], [place] [address] Phone Care Team Providers Care Geographic Information Systems Engineer Name Role Phone Joaquin Prasad MD Primary Care Provider Encounter Details Date Type Department Care Team (Late st Contact Info) Description 11/27/2013 Documentation [facility] [place] Family Medicine [address] [place] [address] Family Medicine, Physician [address] [place], [place] [phone] Social History Tobacco Use Types Packs/Day Years [...] on filedocumented in this encounter Care Teams Geographic Information Systems Engineer Relationship Specialty Start Date End Date Joaquin Prasad MD [address] [place] [address] [place] [address] PCP - General Pediatrics 06/11/18 03/07/23 documented as of this encounter
--- OUTSIDE RECORDS SUMMARY | 2025-08-11 18:51 | XMS_ITS | Encounter Summary ---
Author Organization [facility] Address [address] [place], [place] [address] Phone Care Team Providers Care Supervisor Industrial Garment Name Role Phone Joaquin Prasad MD Primary Care Provider [phone] Encounter Details Date Type Department Care Team (Late st Contact Info) Description 12/10/2009 Documentation [facility] [place] Family Medicine [address] [place] [address] Family Medicine, Physician [address] [place], [place] [phone] Social History Tobacco Use Types Packs/Day Years [...] filedocumented in this encounter Care Teams Supervisor Industrial Garment Relationship Specialty Start Date End Date Joaquin Prasad MD [address] [place] [address] [place] [address] PCP - General Pediatrics 06/11/18 03/07/23 documented as of this encounter
--- OUTSIDE RECORDS SUMMARY | 2025-08-11 18:51 | XMS_ITS | Encounter Summary ---
Author Organization [facility] Address [address] [place], [place] [address] Phone Care Team Providers Care Professor Of Voice Name Role Phone Joaquin Prasad MD Primary Care Provider [phone] Encounter Details Date Type Department Care Team (Late st Contact Info) Description 08/21/2012 Documentation [facility] [place] [address] [place] [address] Family Medicine, Physician [address] [place], [place] [phone] Social History Tobacco Use Types Packs/Day Years [...] on filedocumented in this encounter Care Teams Professor Of Voice Relationship Specialty Start Date End Date Joaquin Prasad MD [address] [place] [address] [place] [address] PCP - General Pediatrics 06/11/18 03/07/23 documented as of this encounter
--- OUTSIDE RECORDS SUMMARY | 2025-08-11 18:51 | XMS_ITS | Encounter Summary ---
Author Organization [facility] Address [address] [place] [address] Phone Care Team Providers Care Skid Worker Name Role Phone Joaquin Prasad MD Primary Care Provider [phone] Encounter Details Date Type Department Care Team (Late st Contact Info) Description 05/04/2017 Conversion Encounter [facility] [place] [address] [place] [address] Social History Tobacco Use Types Packs/Day Years [...] on filedocumented in this encounter Care Teams Skid Worker Relationship Specialty Start Date End Date Joaquin Prasad MD [address] [place] [address] PCP - General Pediatrics 06/11/18 03/07/23 documented as of this encounter
--- OUTSIDE RECORDS SUMMARY | 2025-08-11 18:51 | XMS_ITS | Encounter Summary ---
Author Organization [facility] Address [address] [place], [place] [address] Phone Care Team Providers Care Bone Drier Operator Name Role Phone Joaquin Prasad MD Primary Care Provider [phone] Encounter Details Date Type Department Care Team (Late st Contact Info) Description 02/27/2017 Documentation [facility] [place] [address] [place] [address] Family Medicine, Physician [address] [place], [place] [phone] Social History Tobacco Use Types Packs/Day Years [...] on filedocumented in this encounter Care Teams Bone Drier Operator Relationship Specialty Start Date End Date Joaquin Prasad MD [address] [place] [address] [place] [address] PCP - General Pediatrics 06/11/18 03/07/23 documented as of this encounter
--- OUTSIDE RECORDS SUMMARY | 2025-08-11 18:51 | XMS_ITS | Encounter Summary ---
Author Organization [facility] Address [address] [place], [place] [address] Phone Care Team Providers Care Machined Parts Metal Sprayer Name Role Phone Joaquin Prasad MD Primary Care Provider [phone] Encounter Details Date Type Department Care Team (Late st Contact Info) Description 09/23/2014 Documentation [facility] [place] Family Medicine [address] [place] [address] Family Medicine, Physician [address] [place], [place] [phone] Social History Tobacco Use Types Packs/Day Years [...] on filedocumented in this encounter Care Teams Machined Parts Metal Sprayer Relationship Specialty Start Date End Date Joaquin Prasad MD [address] [place] [address] [place] [address] PCP - General Pediatrics 06/11/18 03/07/23 documented as of this encounter
--- OUTSIDE RECORDS SUMMARY | 2025-08-11 18:51 | XMS_ITS | Encounter Summary ---
Author Organization [facility] Address [address] [place], [place] [address] Phone Care Team Providers Care Vocational Placement Specialist Name Role Phone Joaquin Prasad MD Primary Care Provider Encounter Details Date Type Department Care Team (Late st Contact Info) Description 10/04/2011 Documentation [facility] [place] Family Medicine [address] [place] [address] Family Medicine, Physician [address] [place], [place] [phone] Social History Tobacco Use Types Packs/Day Years [...] on filedocumented in this encounter Care Teams Vocational Placement Specialist Relationship Specialty Start Date End Date Joaquin Prasad MD [address] [place] [address] [place] [address] PCP - General Pediatrics 06/11/18 03/07/23 documented as of this encounter
--- OUTSIDE RECORDS SUMMARY | 2025-08-11 18:51 | XMS_ITS | Clinical Summary ---
Author Organization [facility] Address [address] [place] [address] Phone Care Team Providers Care Rental Salesperson Name Role Phone Unavailable Primary Care Provider [...] (01/18/2023): Added automatically from request for surgery [id number] ADHD (attention deficit hype ractivity disorder), combined type 08/12/2014 Overview (02/02/2021): 12/05 - was seeing counselor at [facility], stopped a month ago. Not on [...] of Strabismus, No family history of *Sudden /[place] under 55 Sister garcía trejo Alive Sister: [...]
--- OUTSIDE RECORDS SUMMARY | 2025-08-11 18:51 | XMS_ITS | Encounter Summary ---
Author Organization [facility] Address [address] [place], [place] [address] Phone Care Team Providers Care Civil Defense Director Name Role Phone Joaquin Prasad MD Primary Care Provider Encounter Details Date Type Department Care Team (Late st Contact Info) Description 09/23/2014 Documentation [facility] [place] Family Medicine [address] [place] [address] Family Medicine, Physician [address] [place], [place] [phone] Social History Tobacco Use Types Packs/Day Years [...] on filedocumented in this encounter Care Teams Civil Defense Director Relationship Specialty Start Date End Date Joaquin Prasad MD [address] [place] [address] [place] [address] PCP - General Pediatrics 06/11/18 03/07/23 documented as of this encounter
--- OUTSIDE RECORDS SUMMARY | 2025-08-11 18:51 | XMS_ITS | Encounter Summary ---
Author Organization [facility] Address [address] [place], [place] [id number] Phone Care Team Providers Care Salvager Helper Name Role Phone Joaquin Prasad MD Primary Care Provider [phone] Encounter Details Date Type Department Care Team (Late st Contact Info) Description 12/10/2009 Document[place] [facility] [place] [address] [place] [address] Family Medicine, Physician [address], [place] [id number] Social History Tobacco Use Types Packs/Day Years [...] on filedocumented in this encounter Care Teams Salvager Helper Relationship Specialty Start Date End Date Joaquin Prasad MD [address] [place] [address] [place] [address] PCP - General Pediatrics 06/11/18 03/07/23 documented as of this encounter
--- OUTSIDE RECORDS SUMMARY | 2025-08-11 18:51 | XMS_ITS | Encounter Summary ---
Author Organization [facility] Address [address] [place], [place] [id number] Phone Care Team Providers Care Processor Helper Name Role Phone Joaquin Prasad MD Primary Care Provider [phone] Encounter Details Date Type Department Care Team (Late st Contact Info) Description 11/26/2013 Documentation [facility] [place] [address] [place] [address] Family Medicine, Physician [address] [place] [id number] Social History Tobacco Use Types Packs/Day Years [...] on filedocumented in this encounter Care Teams Processor Helper Relationship Specialty Start Date End Date Joaquin Prasad MD [address] [place] [address] [place] [address] PCP - General Pediatrics 06/11/18 03/07/23 documented as of this encounter
--- OUTSIDE RECORDS SUMMARY | 2025-08-11 18:51 | XMS_ITS | Encounter Summary ---
Author Organization [facility] Address [address] [place], [place] [id number] Phone Care Team Providers Care Stitching Machine Operator Name Role Phone Joaquin Prasad MD Primary Care Provider [phone] Encounter Details Date Type Department Care Team (Late st Contact Info) Description 07/28/2010 Documentation [facility] [place] [address] [place] [address] Family Medicine, Physician [address] [place] [phone] Social History Tobacco Use Types Packs/Day Years [...] on filedocumented in this encounter Care Teams Stitching Machine Operator Relationship Specialty Start Date End Date Joaquin Prasad MD [address] [place] [address] [place] [address] PCP - General Pediatrics 06/11/18 03/07/23 documented as of this encounter
== END 2025-08-11 14:14 | disposition home or self-care (01) ==
LOC: HO.HPODS 13:56
PROVIDERS: Visit Provider Student in an Organized Health Care Education/Training Program
DX: S92.131A Displaced fracture of posterior process of right talus, initial encounter for closed fracture (principal); Z87.891 Personal history of nicotine dependence
CPT/HCPCS: 99213

== ENCOUNTER → 2025-08-11 13:56 | Outpatient (BNVA) | payer OTHER, SELFPAY | PROVIDERS: Visit Provider Student in an Organized Health Care Education/Training Program | DX: S92.131A Displaced fracture of posterior process of right talus, initial encounter for closed fracture (principal); Y92.310 Basketball court as the place of occurrence of the external cause; Y93.67 Activity, basketball; Z87.891 Personal history of nicotine dependence | CPT/HCPCS: 99212 ==